=== PATIENT | male | born 1995 | race Caucasian/White ===

== ENCOUNTER 2018-06-21 16:19 | Emergency (ER) | payer SELFPAY ==
[2018-06-21] MEDS ORDERED: FLUORESCEIN SODIUM 0.6 MG/WRAP ONE (16:29)
[2018-06-21] MEDS ORDERED: TETRACAINE HCL 0.5% 2ML OPTH ONE (16:29)
--- NOTE | 2018-06-21 17:07 | ER ---
Nurse's Notes [facility] Name: Rui Gautam Age: 22 yrs Sex: Male : 1995 Arrival Date: 06/21/2018 Time: 16:20 Bed 6 Private MD: Diagnosis: Injury of conjunctiva and corneal abrasion without foreign body, right eye Presentation: 06/21 16:26 Presenting complaint: Patient states: He was cutting a [place] into some sheet metal and aj1 the corner flew up into his eye. FB noted to inner section of right eyeball. Patient denies any loss of vision. Transition of care: patient was not received from another setting of care. Mechanism of Injury: Penetrating trauma inflicted by metal Object remains in place. The patient denies any loss of vision. Onset of symptoms was June 21, 2018. Risk Assessment: Do you want to hurt yourself or someone else? Patient reports no desire to harm self or others. Initial Sepsis Screen: Does the patient meet any 2 criteria? No. Patient's initial sepsis screen is negative. Does the patient have a suspected source of infection? Yes: Skin breakdown/wound. Care prior to arrival: None. 16:26 Method Of Arrival: Ambulatory aj1 16:26 Acuity: LARRY 2 aj1 Triage Assessment: 16:29 General: Appears in no apparent distress. uncomfortable, Behavior is calm, cooperative, aj1 appropriate for age. Pain: Complains of pain in right eye Pain currently is 9 out of 10 on a pain scale. EENT: Eyes with foreign body noted in inner aspect of conjuctiva of right eye Sclera/Cornea are reddened in outer aspect of conjuctiva of right eye and inner aspect of conjuctiva of right eye Reports pain in right eye Denies loss of vision. Neuro: Level of Consciousness is awake, alert, obeys commands. Cardiovascular: Patient's skin is warm and dry. Respiratory: Airway is patent Respiratory effort is even, unlabored, Respiratory pattern is regular, symmetrical. Historical: - Allergies: 16:29 No Known Allergies; aj1 - Home Meds: 16:29 None [Active]; aj1 - PMHx: 16:29 None; aj1 - PSHx: 16:29 Knee surgery; Tonsillectomy; aj1 - Immunization history:: Last tetanus immunization: unknown. - Social history:: Smoking status: Patient uses tobacco products, smokes one-half pack cigarettes per day. - Ebola Screening: : Patient denies travel to an Ebola-affected area in the 21 days before illness onset. Screenin:30 Abuse screen: Denies threats or abuse. Denies injuries from another. Nutritional ph screening: No deficits noted. Tuberculosis screening: No symptoms or risk factors identified. Fall Risk None identified. Assessment: 16:28 General: Appears in no apparent distress. uncomfortable, Behavior is calm, cooperative. ph Pain: Complains of pain in right eye. Neuro: Level of Consciousness is awake, alert, obeys commands, Oriented to person, place, time, situation. Cardiovascular: Capillary refill < 3 seconds Patient's skin is warm and dry. Respiratory: Airway is patent Respiratory effort is even, unlabored. EENT: Eyes are tearing on right eye with foreign body noted in inner aspect of conjuctiva of right eye Sclera/Cornea are reddened in inner aspect of conjuctiva of right eye Reports blurred vision in right eye. Derm: Skin is intact, is healthy with good turgor, Skin is pink, warm \T\ dry. Musculoskeletal: Circulation, motion, and sensation intact. Range of motion: intact in all extremities. 17:23 Reassessment: Patient appears in no apparent distress at this time. Patient and/or ph family updated on plan of care and expected duration. Pain level reassessed. Patient is alert, oriented x 3, equal unlabored respirations, skin warm/dry/pink. Pt agrees to folow up w/ Dr Magallanes tomorrow, d/c home w/ prescriptions for antibiotics and pain medication. Vital Signs: 16:29 BP 136 / 79; Pulse 83; Resp 18; Temp 98.3; Pulse Ox 97% on R/A; Weight 130.18 kg; aj1 Height 6 ft. 0 in. (182.88 cm); Pain 9/10; 16:29 Body Mass Index 38.92 (130.18 kg, 182.88 cm) aj1 Visual Acuity: 13:15 Left Eye Visual acuity 20/30, ; Right Eye Visual acuity 20/30, ; Both Eyes Visual ph acuity 20/30; Without Lenses; ED Course: 16:20 Patient arrived in ED. sb2 16:26 Jd Rodriguez NP is PHCP. eb 16:26 Jose Hawthorne MD is Attending Physician. eb 16:26 Charlotte Bear, RN is Primary Nurse. aj1 16:28 Vernell Newman, RN is Primary Nurse. ph 16:28 Triage completed. aj1 16:29 Arm band placed on Patient placed in an exam room. aj1 16:30 Patient has correct armband on for positive identification. Bed in low position. Call ph light in reach. Side rails up X 1. Pulse ox on. NIBP on. Warm blanket given. 16:30 Assist provider with eye exam of right eye. using fluorescein stain, Performed by evelyn Rodriguez NP Patient tolerated well. 17:05 Zay Magallanes MD is Referral Physician. pm1 17:05 Heri Magallanes MD is Referral Physician. pm1 17:18 Patient did not have IV access during this emergency room visit. 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 Exp: ph 08/24/2020. Lot #: [id number]. } Route: IM; Site: left deltoid; 17:22 Follow up: Response: No adverse reaction ph 17:17 Drug: Vigamox 0.5 % 2 drops Route: Ophthalmic; Site: right eye; ph 17:22 Follow up: Response: No adverse reaction ph Outcome: 17:07 Discharge ordered by MD. pm1 17:18 Discharged to home ambulatory. ph 17:18 Condition: good 17:18 Discharge instructions given to patient, Instructed on discharge instructions, follow up and referral plans. medication usage, Demonstrated understanding of instructions, follow-up care, medications, Prescriptions given X 2. 17:25 Patient left the ED. ph Signatures: Charlotte Bear, RN RN aj1 Desirae Duncan RN RN Vernell Clay, Jd Alaniz RN, ph, NP SQL ENGINEER pm1 Shahnaz Garcia 2 Jazzmine Resendez eb
--- NOTE | 2018-06-21 17:07 | EDPHYS ---
Physician Documentation [facility] Name: Rui Gautam Age: 22 yrs Sex: Male : 1995 Arrival Date: 06/21/2018 Time: 16:20 Bed 6 Private MD: ED Physician Jose Hawthorne HPI: 06/21 17:00 This 22 yrs old Male presents to ER via Ambulatory with complaints of Right pm1 Eye Injury. 17:00 The patient is experiencing pain, The patient sustained an abrasion, to the right eye, pm1 caused by Piece of metal. Onset: The symptoms/episode began/occurred just prior to arrival. Duration: the symptoms are continuous. Aggravated by closing eye, Alleviated by keeping eye open. Associated signs and symptoms: Pertinent negatives: vision changes. Patient does not utilize any form of vision correction. The patient has not experienced similar symptoms in the past. The patient has not recently seen a physician. Patient was working with sheet metal. Cutting out a [place]. The [place]roquois metal piece flew out of the sheet and hit his eye. No protective eye wear. Patient with sensation of foreign body in right eye. 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 Historical: - Allergies: 16:29 No Known Allergies; aj1 - Home Meds: 16:29 None [Active]; aj1 - PMHx: 16:29 None; aj1 - PSHx: 16:29 Knee surgery; Tonsillectomy; aj1 - Immunization history:: Last tetanus immunization: unknown. - Social history:: Smoking status: Patient uses tobacco products, smokes one-half pack cigarettes per day. - Ebola Screening: : Patient denies travel to an Ebola-affected area in the 21 days before illness onset. ROS: 17:00 Constitutional: Negative for fever, chills, and weight loss. pm1 17:00 ENT: Negative for injury, pain, and discharge, Neck: Negative for injury, pain, and swelling, Cardiovascular: Negative for chest pain, palpitations, and edema, Respiratory: Negative for shortness of breath, cough, wheezing, and pleuritic chest pain, Abdomen/GI: Negative for abdominal pain, nausea, vomiting, diarrhea, and constipation, Back: Negative for injury and pain, : Negative for injury, bleeding, discharge, and swelling, MS/Extremity: Negative for injury and deformity, Skin: Negative for injury, rash, and discoloration, Neuro: Negative for headache, weakness, numbness, tingling, and seizure. 17:00 Eyes: Positive for foreign body sensation, pain, Negative for blurry vision. Exam: 17:00 Visual Acuity: Patient did not want to perform test. Reports that his vision is fine. pm1 17:00 Constitutional: This is a well developed, well nourished patient who is awake, alert, and in no acute distress. Head/Face: Normocephalic, atraumatic. 17:00 ENT: Nares patent. No nasal discharge, no septal abnormalities noted. Tympanic membranes are normal and external auditory canals are clear. Oropharynx with no redness, swelling, or masses, exudates, or evidence of obstruction, uvula midline. Mucous membranes moist. Neck: Trachea midline, no thyromegaly or masses palpated, and no cervical lymphadenopathy. Supple, full range of motion without nuchal rigidity, or vertebral point tenderness. No Meningismus. Chest/axilla: Normal chest wall appearance and motion. Nontender with no deformity. No lesions are appreciated. Cardiovascular: Regular rate and rhythm with a normal S1 and S2. No gallops, murmurs, or rubs. Normal PMI, no JVD. No pulse deficits. Respiratory: Lungs have equal breath sounds bilaterally, clear to auscultation and percussion. No rales, rhonchi or wheezes noted. No increased work of breathing, no retractions or nasal flaring. Abdomen/GI: Soft, non-tender, with normal bowel sounds. No distension or tympany. No guarding or rebound. No evidence of tenderness throughout. Back: No spinal tenderness. No costovertebral tenderness. Full range of motion. Skin: Warm, dry with normal turgor. Normal color with no rashes, no lesions, and no evidence of cellulitis. MS/ Extremity: Pulses equal, no cyanosis. Neurovascular intact. Full, normal range of motion. 17:00 Eyes: Periorbital structures: appear normal, Pupils: no acute changes, Extraocular movements: intact throughout, Corneas: abrasion, that is large, approximately 10 mm(s), on the right, Sclera: abrasion, at 3 o'clock, Anterior chamber: normal, no hyphema, Lids and lashes: appear normal, bilaterally. 17:00 Neuro: Orientation: is normal, Motor: is normal, moves all fours, Gait: is steady, at a normal pace, without difficulty. Vital Signs: 16:29 BP 136 / 79; Pulse 83; Resp 18; Temp 98.3; Pulse Ox 97% on R/A; Weight 130.18 kg; aj1 Height 6 ft. 0 in. (182.88 cm); Pain 9/10; 16:29 Body Mass Index 38.92 (130.18 kg, 182.88 cm) aj1 Visual Acuity: 13:15 Left Eye Visual acuity 20/30, ; Right Eye Visual acuity 20/30, ; Both Eyes Visual ph acuity 20/30; Without Lenses; MDM: 16:34 Patient medically screened. pm1 17:05 Data reviewed: vital signs. Data interpreted: Pulse oximetry: on room air is 97 %. pm1 Interpretation: normal. Counseling: I had a detailed discussion with the patient and/or guardian regarding: the historical points, exam findings, and any diagnostic results supporting the discharge/admit diagnosis, the need for outpatient follow up, for definitive care, an opthalmologist, to return to the emergency department if symptoms worsen or persist or if there are any questions or concerns that arise at home. 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 Exp: ph 08/24/2020. Lot #: [id number]. } Route: IM; Site: left deltoid; 17:22 Follow up: Response: No adverse reaction ph 17:17 Drug: Vigamox 0.5 % 2 drops Route: Ophthalmic; Site: right eye; ph 17:22 Follow up: Response: No adverse reaction ph Disposition: 06/21/18 17:07 Discharged to Home. Impression: Injury of conjunctiva and corneal abrasion without foreign body, right eye. - Condition is Stable. - Discharge Instructions: Corneal Abrasion. - Prescriptions for Tylenol- Codeine #3 300-30 mg Oral Tablet - take 2 tablets by ORAL route every 6 hours As needed; 20 tablet. Vigamox 0.5 % Ophthalmic Drops - instill 1 drop by OPHTHALMIC route every 8 hours for 7 days; 5 milliliter. - Medication Reconciliation Form, Thank You Letter, Antibiotic Education, Prescription Opioid Use form. - Follow up: Emergency Department; When: As needed; Reason: Worsening of condition. Follow up: Zay Magallanes MD; When: Tomorrow; Reason: Recheck today's complaints, Continuance of care, Re-evaluation by your physician. Follow up: Heri Magallanes MD; When: Tomorrow; Reason: Recheck today's complaints, Continuance of care, Re-evaluation by your physician. - Problem is new. - Symptoms have improved. Addendum: 06/25/2018 17:26 Co-signature as Attending Physician, Jose Hawthorne MD. m a2 Signatures: Charlotte Bear RN RN aj1 Desirae Duncan RN RN Vernell Newman RN RN ph Jd Rodriguez, NEHEMIAS ASSEMBLER BRAZER pm1 Jose Hawthorne MD MD ma2 Corrections: (The following items were deleted from the chart) 06/21 17:25 17:07 06/21/2018 17:07 Discharged to Home. Impression: Injury of conjunctiva and ph corneal abrasion without foreign body, right eye. Condition is Stable. Forms are Medication Reconciliation Form, Thank You Letter, Antibiotic Education, Prescription Opioid Use. Follow up: Emergency Department; When: As needed; Reason: Worsening of condition. Follow up: Zay Magallanes; When: Tomorrow; Reason: Recheck today's complaints, Continuance of care, Re-evaluation by your physician. Follow up: Heri Magallanes; When: Tomorrow; Reason: Recheck today's complaints, Continuance of care, Re-evaluation by your physician. Problem is new. Symptoms have improved. pm1
[2018-06-21] MEDS ORDERED: TETANUS & DIPHTHERIA TOX,ADULT 0.5 ML VIAL ONE (17:09)
[2018-06-21] MEDS ORDERED: MOXIFLOXACIN HCL 0.5% 3ML OPTH OPTH ONE (17:15)
[2018-06-21 18:36] VITALS: BP 136/79; TEMP 98.3; O2SAT 97
== END 2018-06-21 17:25 | disposition home or self-care (01) ==
LOC: ER 16:19
DX: S05.01XA Injury of conjunctiva and corneal abrasion without foreign body, right eye, initial encounter (principal); X58.XXXA Exposure to other specified factors, initial encounter; Z23 Encounter for immunization
CPT/HCPCS: 90714; 99284

== ENCOUNTER 2019-08-22 03:04 | Emergency (ER) | payer BC, SELFPAY ==
[2019-08-22 03:55] LABS: Absolute Lymphocytes (CBC) 3.8 K/uL (0.7-4.9); Basophils % 0.7 % (0-1.3); Hematocrit 46.2 % (39.6-49.0); Lymphocytes % 34.3 % (15.3-44.8); MPV 8.1 fL (7.6-11.3); RBC Red Blood Cell Count 5.37 M/uL (4.33-5.43)
[2019-08-22 03:56] LABS: Protime INR 0.98
[2019-08-22 04:05] LABS: ALT/SGPT 48 U/L (12-78); AST/SGOT 24 U/L (15-37); Albumin 4.1 g/dL (3.4-5.0); Alkaline Phosphatase 117 U/L (45-117); BUN Blood Urea Nitrogen 10 mg/dL (7-18); Bicarbonate 26 mmol/L (21-32); Bilirubin Direct < 0.1 mg/dL (0-0.2); Bilirubin Total 0.3 mg/dL (0.2-1.0); Glucose Level 141 mg/dL (74-106); Potassium 3.8 mmol/L (3.5-5.1); Protein, Total 8.2 g/dL (6.4-8.2); Sodium Level 139 mmol/L (136-145); Troponin (Emerg Dept Use Only) < 0.02 ng/mL (0.0-0.045)
[2019-08-22 04:08] LABS: NT PRO-BNP < 5 pg/mL (<125)
--- NOTE | 2019-08-22 04:59 | ER ---
Nurse's Notes [facility] Name: Rui Gautam Age: 23 yrs Sex: Male : 1995 Arrival Date: 08/22/2019 Time: 03:04 Bed 5 Private MD: Diagnosis: Chest pain, unspecified;Hypertension to be determined Presentation: 08/22 03:27 Presenting complaint: Patient states: Chest pain, dizziness, shortness of breath that lp1 began about [id number] tonight; Patient states working nights, about 3 hours of sleep and drank a [employer] energy drink prior to symptoms; States "I feel like I can hear my heart beat in my ears". Transition of care: patient was not received from another setting of care. Onset of symptoms was August 22, 2019. Risk Assessment: Do you want to hurt yourself or someone else? Patient reports no desire to harm self or others. Initial Sepsis Screen: Does the patient meet any 2 criteria? No. Patient's initial sepsis screen is negative. Does the patient have a suspected source of infection? No. Patient's initial sepsis screen is negative. Care prior to arrival: None. 03:27 Method Of Arrival: Ambulatory lp1 03:27 Acuity: LARRY 2 lp1 Historical: - Allergies: 03:29 No Known Allergies; lp1 - Home Meds: 03:29 None [Active]; lp1 - PMHx: 03:29 None; lp1 - PSHx: 03:29 Tonsillectomy; Knee surgery; lp1 - Immunization history:: Adult Immunizations up to date. - Social history:: Smoking status: Patient uses tobacco products, smokes one pack cigarettes per day. Patient uses alcohol, occasionally. Patient/guardian denies using street drugs. - Ebola Screening: : No symptoms or risks identified at this time. Screenin:29 Abuse screen: Denies threats or abuse. Denies injuries from another. Nutritional lp1 screening: No deficits noted. Tuberculosis screening: No symptoms or risk factors identified. Fall Risk None identified. Assessment: 03:31 General: Appears in no apparent distress. uncomfortable, Behavior is calm, cooperative, jb4 appropriate for age. Pain: Complains of pain in left clavicle and left breast Pain does not radiate. Pain currently is 7 out of 10 on a pain scale. Quality of pain is described as pressure, stabbing, Pain began 3 hours ago. Is continuous. Neuro: Level of Consciousness is awake, alert, obeys commands, Oriented to person, place, time, situation. Cardiovascular: Patient's skin is warm and dry. Rhythm is sinus rhythm. Respiratory: Airway is patent Respiratory effort is even, unlabored, Respiratory pattern is regular, symmetrical. GI: Reports vomiting, 3 times prior to arrival. : No signs and/or symptoms were reported regarding the genitourinary system. EENT: No signs and/or symptoms were reported regarding the EENT system. Derm: Skin is intact, Skin is pink, warm \\T\\ dry. Musculoskeletal: Circulation, motion, and sensation intact. Range of motion: intact in all extremities. 04:20 Reassessment: Patient appears in no apparent distress at this time. Patient and/or jb4 family updated on plan of care and expected duration. Pain level reassessed. Patient is alert, oriented x 3, equal unlabored respirations, skin warm/dry/pink. 05:07 Reassessment: Patient appears in no apparent distress at this time. Patient and/or jb4 family updated on plan of care and expected duration. Pain level reassessed. Patient is alert, oriented x 3, equal unlabored respirations, skin warm/dry/pink. Vital Signs: 03:28 BP 169 / 101; Pulse 84; Resp 20; Temp 98.6(O); Pulse Ox 100% on R/A; Weight 136.08 kg lp1 (R); Height 6 ft. 0 in. (182.88 cm); Pain 7/10; 04:18 BP 138 / 84; Pulse 66; Resp 22; Pulse Ox 98% on R/A; jb4 05:07 BP 143 / 95; Pulse 74; Resp 18; Pulse Ox 99% on R/A; jb4 03:28 Body Mass Index 40.69 (136.08 kg, 182.88 cm) lp1 ED Course: 03:04 Patient arrived in ED. ds1 03:07 Israel Deleon MD is Attending Physician. tw4 03:20 Inserted saline lock: 20 gauge in right antecubital area, using aseptic technique. lp1 Blood collected. 03:20 Patient maintains SpO2 saturation greater than 95% on room air. lp1 03:28 Triage completed. lp1 03:28 Arm band placed on. lp1 03:30 Huy Denney, RN is Primary Nurse. jb4 03:30 Patient has correct armband on for positive identification. Placed in gown. Bed in low lp1 position. Call light in reach. campus monitor on. Pulse ox on. NIBP on. 03:36 XRAY Chest (1 view) In Process Unspecified. EDMS 05:07 No provider procedures requiring assistance completed. IV discontinued, intact, jb4 bleeding controlled, No redness/swelling at site. Pressure dressing applied. Administered Medications: No medications were administered Outcome: 04:58 Discharge ordered by . twLarry 05:07 Discharged to home ambulatory. jb4 05:07 Condition: stable 05:07 Discharge instructions given to patient, Instructed on discharge instructions, follow up and referral plans. medication usage, Demonstrated understanding of instructions, follow-up care, medications, Prescriptions given X 1. 05:10 Patient left the ED. jb4 Signatures: Dispatcher [employer] EDMI Melissa Núñez ds1 Herminia El RN RN lp1 Huy Denney, RN RN jb4 Israel Deleon MD MD tw4
--- NOTE | 2019-08-22 04:59 | EDPHYS ---
Physician Documentation [facility] Name: Rui Gautam Age: 23 yrs Sex: Male : 1995 Arrival Date: 08/22/2019 Time: 03:04 Bed 5 Private MD: ED Physician Israel Deleon HPI: 08/22 04:50 This 23 yrs old Male presents to ER via Ambulatory with complaints of Chest tw4 Pain. 04:50 The patient or guardian reports chest pain that is located primarily in the anterior tw4 chest wall, left. The pain does not radiate. Associated signs and symptoms: The patient has no apparent associated signs or symptoms. The chest pain is described as dull. Duration: The patient or guardian reports a single episode. Severity of pain: At its worst the pain was moderate in the emergency department the pain is unchanged. The patient has not experienced similar symptoms in the past. Historical: - Allergies: 03:29 No Known Allergies; lp1 - Home Meds: 03:29 None [Active]; lp1 - PMHx: 03:29 None; lp1 - PSHx: 03:29 Tonsillectomy; Knee surgery; lp1 - Immunization history:: Adult Immunizations up to date. - Social history:: Smoking status: Patient uses tobacco products, smokes one pack cigarettes per day. Patient uses alcohol, occasionally. Patient/guardian denies using street drugs. - Ebola Screening: : No symptoms or risks identified at this time. ROS: 04:50 Constitutional: Negative for fever, chills, and weight loss, Eyes: Negative for injury, tw4 pain, redness, and discharge, Neck: Negative for injury, pain, and swelling. 04:50 Respiratory: Negative for shortness of breath, cough, wheezing, and pleuritic chest pain, Abdomen/GI: Negative for abdominal pain, nausea, vomiting, diarrhea, and constipation, Back: Negative for injury and pain, MS/Extremity: Negative for injury and deformity, Skin: Negative for injury, rash, and discoloration, Neuro: Negative for headache, weakness, numbness, tingling, and seizure. 04:50 Cardiovascular: Positive for chest pain, Negative for edema, orthopnea, palpitations, paroxysmal nocturnal dyspnea. Exam: 04:50 Constitutional: This is a well developed, well nourished patient who is awake, alert, tw4 and in no acute distress. Head/Face: Normocephalic, atraumatic. Chest/axilla: Normal chest wall appearance and motion. Nontender with no deformity. No lesions are appreciated. Cardiovascular: Regular rate and rhythm with a normal S1 and S2. No gallops, murmurs, or rubs. Normal PMI, no JVD. No pulse deficits. Respiratory: Lungs have equal breath sounds bilaterally, clear to auscultation and percussion. No rales, rhonchi or wheezes noted. No increased work of breathing, no retractions or nasal flaring. Abdomen/GI: Soft, non-tender, with normal bowel sounds. No distension or tympany. No guarding or rebound. No evidence of tenderness throughout. Back: No spinal tenderness. No costovertebral tenderness. Full range of motion. MS/ Extremity: Pulses equal, no cyanosis. Neurovascular intact. Full, normal range of motion. Neuro: Awake and alert, GCS 15, oriented to person, place, time, and situation. Cranial nerves II-XII grossly intact. Motor strength 5/5 in all extremities. Sensory grossly intact. Cerebellar exam normal. Normal gait. Vital Signs: 03:28 BP 169 / 101; Pulse 84; Resp 20; Temp 98.6(O); Pulse Ox 100% on R/A; Weight 136.08 kg lp1 (R); Height 6 ft. 0 in. (182.88 cm); Pain 7/10; 04:18 BP 138 / 84; Pulse 66; Resp 22; Pulse Ox 98% on R/A; jb4 05:07 BP 143 / 95; Pulse 74; Resp 18; Pulse Ox 99% on R/A; jb4 03:28 Body Mass Index 40.69 (136.08 kg, 182.88 cm) lp1 MDM: 03:08 Patient medically screened. tw4 04:50 Differential diagnosis: acute myocardial infarction, acute pericarditis, anxiety, chest tw4 wall pain, stable angina, unstable angina. HEART Score: History: Slightly Suspicious (0), ECG: Normal (0), Age: < or = 45 years (0), Risk Factors: No Risk Factors Known (0), Troponin: < or = 1 x Normal Limit (0), Total Score = 0. Data reviewed: vital signs, nurses notes. Data interpreted: Pulse oximetry: Interpretation: normal. Test interpretation: by ED physician or midlevel provider: ECG. Counseling: I had a detailed discussion with the patient and/or guardian regarding: the historical points, exam findings, and any diagnostic results supporting the discharge/admit diagnosis, the presence of at least one elevated blood pressure reading (>120/80) during this emergency department visit. Special discussion: Based on the patient's history, exam, and Dx evaluation, there is no indication for emergent intervention or inpatient Tx. It is understood by the patient/guardian that if the Sx's persist or worsen they need to return immediately for re-evaluation. I discussed with the patient/guardian in detail that at this point there is no indication for admission to the hospital. It is understood, however, that if the symptoms persist or worsen the patient needs to return immediately for re-evaluation. 08/22 03:23 Order name: Basic Metabolic Panel; Complete Time: 04:48 08/22 04:48 Interpretation: Normal except: GLUC 141. 08/22 03:23 Order name: CBC with Diff; Complete Time: 04:48 08/22 04:48 Interpretation: Normal except: WBC 11.2. 08/22 03:23 Order name: LFT's; Complete Time: 04:48 08/22 04:48 Interpretation: Normal except: GLOB 4.1; A/G 1.0. 08/22 03:23 Order name: Magnesium; Complete Time: 04:48 08/22 04:49 Interpretation: Within normal limits: MG 2.0. 08/22 03:23 Order name: NT PRO-BNP; Complete Time: 04:48 08/22 04:49 Interpretation: Within normal limits: NT PRO-BNP < 5. 08/22 03:23 Order name: PT-INR; Complete Time: 04:48 08/22 04:49 Interpretation: Within normal limits: PT 11.6. 08/22 03:23 Order name: Troponin (emerg Dept Use Only); Complete Time: 04:48 08/22 04:49 Interpretation: Within normal limits: TROPED < 0.02. 08/22 03:23 Order name: XRAY Chest (1 view) 08/22 03:23 Order name: EKG; Complete Time: 03:24 4 08/22 03:23 Order name: Cardiac monitoring; Complete Time: 03:30 08/22 03:23 Order name: EKG - Nurse/Tech; Complete Time: 03:30 08/22 03:23 Order name: IV Saline Lock; Complete Time: 03:30 08/22 03:23 Order name: Labs collected and sent; Complete Time: 03:30 08/22 03:23 Order name: O2 Per Protocol; Complete Time: 03:30 08/22 03:23 Order name: O2 Sat Monitoring; Complete Time: 03:45 tw4 EC:50 Rate is 84 beats/min. Rhythm is regular. QRS [place] is Normal. VA interval is normal. QRS tw4 interval is normal. QT interval is normal. No Q waves. T waves are Normal. No ST changes noted. Clinical impression: Normal ECG. Interpreted by me. Reviewed by me. Administered Medications: No medications were administered Disposition: 08/22/19 04:58 Discharged to Home. Impression: Chest pain, unspecified, Hypertension to be determined. - Condition is Stable. - Discharge Instructions: Nonspecific Chest Pain, Hypertension, Pain Without a Known Cause. - Prescriptions for Ibuprofen 600 mg Oral Tablet - take 1 tablet by ORAL route every 6 hours As needed take with food; 30 tablet. - Work release form, Medication Reconciliation Form, Thank You Letter, Antibiotic Education, Prescription Opioid Use form. - Follow up: Private Physician; When: Upon discharge from the Emergency Department; Reason: Recheck today's complaints, Continuance of care. - Problem is new. - Symptoms have improved. Signatures: Dispatcher [employer] EDMS Herminia El, RN RN lp1 Huy Denney RN RN jb4 Israel Deleon MD MD tw4 Corrections: (The following items were deleted from the chart) 05:10 04:58 08/22/2019 04:58 Discharged to Home. Impression: Chest pain, unspecified; jb4 Hypertension to be determined. Condition is Stable. Forms are Medication Reconciliation Form, Thank You Letter, Antibiotic Education, Prescription Opioid Use. Follow up: Private Physician; When: Upon discharge from the Emergency Department; Reason: Recheck today's complaints, Continuance of care. Problem is new. Symptoms have improved. tw4
[2019-08-22 05:21] VITALS: TEMP 98.6
[2019-08-22 05:23] VITALS: BP 143/95; O2SAT 99
--- NOTE | 2019-08-22 08:17 | RAD REPORT ---
EXAM DESCRIPTION: Renetta Single View08/22/2019 3:36 am CLINICAL HISTORY: Chest pain COMPARISON: 2013 FINDINGS: The lungs appear clear of acute infiltrate. The heart is normal size IMPRESSION: No acute abnormalities displayed
--- NOTE | 2019-08-23 06:38 | EKG ---
Test Date: 2019-08-22 Test Time: 03:21:17 Solids Control Technician: LISA MEASUREMENT RESULTS: Intervals: Rate: 84 NE: 160 QRSD: 94 QT: 354 QTc: 418 Johnson: P: 45 NE: 160 QRS: 14 T: 2 INTERPRETIVE STATEMENTS: Normal sinus rhythm Normal ECG Compared to ECG 12/09/2013 16:38:22 Sinus tachycardia no longer present Electronically Signed On 08-23-19 06:36:12 DIRECTOR CLINICAL DATA by Chris Guadalupe
== END 2019-08-22 05:10 | disposition home or self-care (01) ==
LOC: ER 03:04
DX: R07.9 Chest pain, unspecified (principal); F17.210 Nicotine dependence, cigarettes, uncomplicated
CPT/HCPCS: 36415; 71045; 80048; 80076; 83735; 83880; 84484; 85025; 85610; 93005; 99285

== ENCOUNTER 2023-03-12 15:35 | Emergency (ER) | payer BC, OTHER ==
--- OUTSIDE RECORDS SUMMARY | 2023-03-12 15:57 | XMS REPORT | Continuity of Care Document ---
:[address] [facility] t Address [address] [place] [address] Care Team Providers Name Role Phone Dixie Jorge MD Primary Care Physician [phone] TED WOMACK Attending Clinician Unavailable Ted Womack DO Attending Clinician CHRISTOPHER ROBLEDO Attending Clinician Unavailable Osmar Mathews MD Attending Clinician Eduardo Ordoñez MD Attending Clinician Christopher Robledo MD Attending Clinician Marquita Smith MD Attending Clinician REBECCA JAIMES Attending Clinician Unavailable Rebecca Herndon Attending Clinician MAXIMO PIZARRO Attending Clinician Unavailable Maximo Hernandez Attending Clinician DIXIE JORGE Attending Clinician Unavailable Dixie Jorge MD Attending Clinician Ariel Santillan S Attending Clinician ARIEL PATEL Attending Clinician Unavailable SHERRY GARCIA Attending Clinician Unavailable EDUARDO ORDOÑEZ Admitting Clinician Unavailable Eduardo Ordoñez MD Admitting Clinician REBECCA JAIMES Admitting Clinician Unavailable Payers Payer Name Policy Type Policy Number Effective Date Expiration Date S lluú [employer] [place] - [id number] 2019 00:00:00 OUT OF STATE Problems Condition Condition Condition Status Onset Resolution Last Treating Co mments Source Name Details Category Date Date Treatment Clinician Date 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 Univers abscess abscess 2-19 ity of 00:00: [place] 00 Medical Branch Morbid Morbid Disease Active 2021-08 Univers obesity obesity 2-19 [place] of with [place] mass index mass index 00 Me dical of of Branch 40.0-49.9 40.0-49.9 Tear of Tear of Disease Active Univers lateral lateral 1-15 [place] of cartilage cartilage [place] 00 Medical meniscus meniscus Branch of knee, of knee, current current Tear of Tear of Disease Active Univers lateral lateral 1-15 [place] of cartilage cartilage 00:[place] 00 Medical meniscus meniscus Branch of knee, of knee, current current Allergies, Adverse Reactions, Alerts Allergy Allergy Status Severity Reaction(s) Onset Inactive Treating Comm ents Source Name Type Date Date Clinician NO KNOWN Drug Active Univers ALLERGIE Class ity of [facility] [place] [facility] Social History Social Habit Start Date Stop Date Quantity Comments Source History SDOH Social Unive rsity of [facility] Med ical Together Branch History SDOH Social Unive rsity of [facility] Branch History SDOH Social Unive rsity of [facility] Medical Membership Branch History SDOH Social Unive rsity of [facility] Medical Meetings Branch History of tobacco Cigarette Smoker University of use [facility] [place] [facility] Alcohol intake 2022-07-26 2022-07-26 1.71 /d University of 00:00:00 00:00:00 [place] [facility] History SDOH 2022-07-25 2022-07-25 1 University o f Alcohol Frequency 00:00:00 00:00:00 [place] [facility] History SDOH 2022-07-25 2022-07-25 0 University o f Alcohol Std Drinks 00:00:00 00:00:00 [place] [facility] History SDOH 2022-07-25 2022-07-25 1 University o f Alcohol Binge 00:00:00 00:00:00 [place] Medic al [facility] History SDOH Social 2022-07-25 2022-07-25 5 Unive rsity of Connections Phone 00:00:00 00:00:00 [facility] edical Branch History SDNY Social 2022-07-25 2022-07-25 3 Unive rsity of [facility] Living 00:00:00 00:00:00 [place] [facility] History SDOH 2022-07-25 2022-07-25 5 University o f Physical Activity 00:00:00 00:00:00 [facility] edical DPW Branch History SDNY 2022-07-25 2022-07-25 4 University o f Physical Activity 00:00:00 00:00:00 [facility] edical MPS Branch History SDNY 2022-07-25 2022-07-25 5 University o f Financial 00:00:00 00:00:00 [place] [facility] History SDOH Food 2022-07-25 2022-07-25 1 Univers ity of Worry 00:00:00 00:00:00 [place] [facility] History SDNY Food 2022-07-25 2022-07-25 1 Univers ity of Scarcity 00:00:00 00:00:00 [place] [facility] History SDNY 2022-07-25 2022-07-25 2 University o f Transport Med 00:00:00 00:00:00 [place] [facility] History SDNY 2022-07-25 2022-07-25 2 University o f Transport Non-Med 00:00:00 00:00:00 [facility] edical Branch Cigarettes smoked 2022-07-25 2022-07-25 Univers ity of current (pack per 00:00[facility]00 [facility] Tobacco use and 2022-07-25 2022-07-25 Smokeless tobacco Un iversity of exposure 00:00:00 00:00:00 non-user [facility] [place] [facility] Exposure to 2022-07-14 2022-07-24 Not sure University of SARS-CoV-2 (event) 00:00:00 19:09:00 [facility] [place] [facility] Tobacco Comment 2022-07-24 2022-07-24 10 cigarettes a Univ ersity of 00:00:00 00:00:00 day. [facility] [place] [facility] Sex [birth year] At [birth year] Universit y of 00:00:00 00:00:00 [facility] [place] [facility] Smoking Status Start Date Stop Date Source Smokes tobacco daily 2022-07-25 00:00:00 Univers ity of [facility] [place] [facility] Medications Ordered Filled Start Stop Current Ordering Indication Dosage Frequency Signature Comments Components Source Medication Medication Date Date Medication? Clinician (SIG) Name Name clindamycin 2022- No [id number] 300mg Take 2 Univers 150 mg 08-30 capsules ity of capsule 00:00: 05:59 by mouth 4 [place] 00 :00 (four) Medical times [place] daily for 14 days. amoxicillin 2021-08- No 1{tbl} 1 tablet, Univers -clavulanat 09-26 Oral, ity of e 20:15: 13:59 Q12H, 20 [place] (AUGMENTIN) 00 :00 doses, Medica l 875-125 mg First dose Bra nch per tablet on Sun 1 tablet 07/26/22 at 1415, Last dose on Sun08/04/22 at 2000, Routine
Reason for Anti-Infec tive: Documented Infection< br>Documen pete Infection Site: Wound
D uration of Therapy: 10 days traMADoL 2021-08 No 50mg 50 mg, Univer s (ULTRAM) 09-26 Oral, ity of tablet 50 13:00: 04:59 Q6HPRN, [place] mg 00 :00 Starting Medical on Sun Branch 07/26/22 at 0700, Until Sun07/26/22 at 2259, Routine, Pain (scale 4-6) traMADoL 2021-08 No 50mg 50 mg, Univer s (ULTRAM) 09-26 Oral, ity of tablet 50 13:00: 04:59 Q6HPRN, [place] mg 00 :00 Starting Medical on Sun07/26/22 at 0700, Until Sun07/26/22 at 2259, Routine, Pain (scale 4-6) nicotine 2021-08 Yes 1{patch 1 Patch, Un gabbi (NICODERM) 2-21 } Topical, ity o f 14 mg/24 hr 04:30: Administer [place] patch 1 00 over 24 Medical Patch Hours, Branch Q24H, First dose on Sun07/25/22 at 2230, Until Discontinu ed, Routine nicotine 2021-08 Yes 1{patch 1 Patch, Un gabbi (NICODERM) 2-21 } Topical, ity o f 14 mg/24 hr 04:30: Administer [place] patch 1 00 over 24 Medical Patch Hours, Branch Q24H, First dose on Sun07/25/22 at 2230, Until Discontinu ed, Routine morpHINE (4 2021-08- No 4mg 4 mg, Slow Univers mg/mL) 09-26 IV Push, ity of injection 4 02:13: 02:12 Q4HPRN, [place] mg 22 :22 Starting Medical on Sun [place] 07/25/22 at 2012, Until Sun07/26/22 at 2011, Routine, Pain (scale 7-10) morpHINE (4 2021-08- No 4mg 4 mg, Slow Univers mg/mL) 09-26 IV Push, ity of injection 4 02:13: 02:12 Q4HPRN, [place] mg 22 :22 Starting Medical on [place] 07/25/22 at 2012, Until Sun07/26/22 at 2011, Routine, Pain (scale 7-10) sulfamethox 2021-08- No [id number] 1{tbl} Take 1 Univers azole-trime 09-26 tablet by it y of thoprim 00:00: 05:59 mouth in [place] (BACTRIM 00 :00 the Medical DS) 800-160 morning Branc h mg per and 1 tablet tablet in the evening. Do all this for 10 days. traMADoL 50 2021-08- No [id number] 50mg Take 1 Uni vers mg tablet 09-26 tablet by ity of 00:00: 05:59 mouth [place] 00 :00 every 8 Medical (eight) Branch hours as needed for Pain (scale 4-6) for up to 7 days. Indication s: acute pain sodium 2021-08 No PRN, Univers chloride 09-25 Starting ity of 0.9 % 17:43: 18:07 on Sun [place] irrigation 00 :02 07/25/22 Medic al solution at 1143, Branch Until Sun07/25/22 at 1207, Intra-op enoxaparin 2021-08 Yes 40mg 40 mg, Unive rs (LOVENOX) 2-20 Subcutaneo ity of injection 15:00: [place], DAILY, [place] 40 mg 00 First dose Medical on [facility] 07/25/22 at 0900, Until Discontinu ed, Routine enoxaparin 2021-08 Yes 40mg 40 mg, Unive rs (LOVENOX) 2-20 Subcutaneo ity of injection 15:00: us, DAILY, [place] 40 mg 00 First dose Medical on [facility] 07/25/22 at 0900, Until Discontinu ed, Routine piperacilli 2021-08 No 3.375g 3.375 g, Univers n-tazobacta 09-25 IV ity of m (ZOSYN) 11:00: 18:00 Piggyback, [place] 3.375 g in 00 :53 Q8H ABX, 7 Med ical NaCl 0.9% doses, Branch (NS) 50 mL First dose MINI-BAG (after last reorder) on Sun07/25/22 at 0500, Last dose on Sun07/27/22 at 0500, Administer over 240 Minutes, 50 mL
Reas on for Anti-Infec tive: Documented Infection< br>Documen pete Infection Site: Skin / Soft Tissue
Duration of Therapy: Other (see Comments) piperacilli 2021-08- No 3.375g 3.375 g, Univers n-tazobacta 09-25 IV ity of m (ZOSYN) 11:00: 18:00 Pig[place]back, [place] 3.375 g in 00 :53 Q8H ABX, 7 Med ical NaCl 0.9% doses, Branch (NS) 50 mL First dose MINI-BAG (after last reorder) on Sun07/25/22 at 0500, Last dose on Sun07/27/22 at 0500, Administer over 240 Minutes, 50 mL
Reas on for Anti-Infec tive: Documented Infection< br>Documen pete Infection Site: Skin / Soft Tissue
Duration of Therapy: Other (see Comments) ondansetron 2021-08 Yes 4mg 4 mg, Slow Univers (ZOFRAN 2-20 IV Push, ity of (PF)) 05:40: Q6HPRN, [place] injection 4 41 Starting Medi shukri mg on Sun Branch 07/24/22 at 2340, Until Discontinu ed, Routine, Nausea and Vomiting (N/V) ondansetron 2021-08 Yes 4mg 4 mg, Slow Univers (ZOFRAN 2-20 IV Push, ity of (PF)) 05:40: Q6HPRN, [place] injection 4 41 Starting Medi shukri mg on Sun Branch 07/24/22 at 2340, Until Discontinu ed, Routine, Nausea and Vomiting (N/V) morpHINE (4 2021-08- No 4mg 4 mg, Slow Univers mg/mL) 09-25 IV Push, ity of injection 4 05:40: 02:13 Q4HPRN, [place] mg 27 :14 Starting Medical on Sun Branch 07/24/22 at 2340, Until Sun07/25/22 at 2013, Routine, Pain (scale 7-10) morpHINE (4 2021-08- No 4mg 4 mg, Slow Univers mg/mL) 09-25 IV Push, ity of injection 4 05:40: 02:13 Q4HPRN, [place] mg 27 :14 Starting Medical on Sun Branch 07/24/22 at 2340, Until Sun07/25/22 at 2013, Routine, Pain (scale 7-10) traMADoL 2021-08- No 50mg 50 mg, Univer s (ULTRAM) 09-25 Oral, ity of tablet 50 05:40: 12:54 Q8HPRN, [place] mg 24 :36 Starting Medical on Sun Branch 07/24/22 at 2340, Until Sun07/26/22 at 0654, Routine, Pain (scale 4-6) traMADoL 2021-08- No 50mg 50 mg, Univer s (ULTRAM) 09-25 Oral, ity of tablet 50 05:40: 12:54 Q8HPRN, [place] mg 24 :36 Starting Medical on [place] Branch 07/24/22 at 2340, Until Sun07/26/22 at 0654, Routine, Pain (scale 4-6) acetaminoph 2021-08 Yes 650mg 650 mg, Un gabbi en 2-20 Oral, ity of (TYLENOL) 05:40: Q6HPRN, [place] tablet 650 19 Starting Medic al mg on Sun Branch 07/24/22 at 2340, Until Discontinu ed, Routine, Pain (scale 1-3) acetaminoph 2021-08 Yes 650mg 650 mg, Un gabbi en 2-20 Oral, ity of (TYLENOL) 05:40: Q6HPRN, [place] tablet 650 19 Starting Medic al mg on Sun Branch 07/24/22 at 2340, Until Discontinu ed, Routine, Pain (scale 1-3) ketorolac 2021-08- No 30mg 30 mg, Unive rs (TORADOL) 09-25 Slow IV ity of injection 04:30: 03:41 Push, [place] 30 mg 00 :00 ONCE, 1 Medical dose, On Branch Sun07/24/22 at 2230, THADDEUS ketorolac 2021-08- No 30mg 30 mg, Unive rs (TORADOL) 09-25 Slow IV ity of injection 04:30: 03:41 Push, [place] 30 mg 00 :00 ONCE, 1 Medical dose, On Branch Sun07/24/22 at 2230, THADDEUS piperacilli 2021-08- No 3.375g 3.375 g, Univers n-tazobacta 09-25 IV ity of m (ZOSYN) 03:45: 04:40 Piggyback, [place] 3.375 g in 00 :00 ONCE, 1 Medica l NaCl 0.9% dose, On Branch (NS) 100 mL Mon MINI-BAG 07/24/22 at 2145, Administer over 30 Minutes, 100 mL
Reas on for Anti-Infec tive: Documented Infection< br>Documen pete Infection Site: Skin / Soft Tissue
Duration of Therapy: Other (see Comments) morpHINE (4 2021-08- No 4mg 4 mg, Slow Univers mg/mL) - 1220 IV Push, ity of injection 4 03:45: 03:37 ONCE, 1 [place] mg 00 :00 dose, On Medical Mon Branch 07/24/22 at 2145, STAT lidocaine-p 2021-08 No 2.5g Topical, U nivers rilocaine 09-25 ONCE, 1 ity of (EMLA) 03:45: 03:39 dose, On [place] 2.5-2.5 % 00 :00 Mon Medical cream 2.5 g 07/24/22 Bran ch at 2145, THADDEUS iopamidol 2021-08 No [id number] 76mL 76 mL, U nivers (ISOVUE 09-25 Intravenou ity o f 370-500 mL) 03:45: 03:45 s, ONCE, 1 [place] injection 00 :00 dose, On Medica l 76 mL Mon Branch 07/24/22 at 2145, Routine piperacilli 2021-08 No 3.375g 3.375 g, Univers n-tazobacta 09-25 IV ity of m (ZOSYN) 03:45: 04:40 Piggyback, [place] 3.375 g in 00 :00 ONCE, 1 Medica l NaCl 0.9% dose, On Branch (NS) 100 mL Mon MINI-BAG 07/24/22 at 2145, Administer over 30 Minutes, 100 mL
Reas on for Anti-Infec tive: Documented Infection< br>Documen pete Infection Site: Skin / Soft Tissue
Duration of Therapy: Other (see Comments) morpHINE (4 2021-08 No 4mg 4 mg, Slow Univers mg/mL) - 1220 IV Push, ity of injection 4 03:45: 03:37 ONCE, 1 [place] mg 00 :00 dose, On Medical Mon Branch 07/24/22 at 2145, STAT lidocaine-p 2022-1 2022- No 2.5g Topical, U nivers rilocaine 2-20 12-20 ONCE, 1 ity of (EMLA) 03:45: 03:39 dose, On [place] 2.5-2.5 % 00 :00 Mon Medical cream 2.5 g 07/24/22 Bran ch at 2145, THADDEUS iopamidol 2021-08- No [id number] 76mL 76 mL, U nivers (ISOVUE 2-20 12-20 Intravenou ity o f 370-500 mL) 03:45: 03:45 s, ONCE, 1 [place] injection 00 :00 dose, On Medica l 76 mL [facility] 07/24/22 at 2145, Routine ondansetron 2021-08 No 4mg 4 mg, Slow Univers (ZOFRAN 2-20 12-20 IV Push, ity of (PF)) 02:45: 02:15 ONCE, 1 [place] injection 4 00 :00 dose, On Medi shukri mg [facility] 07/24/22 at 2044, THADDEUS FENTanyl PF 2021-08 No 75ug 75 mcg, Un gabbi (SUBLIMAZE 2-20 12-20 Slow IV ity o f (PF)) 02:45: 02:16 Push, [place] injection 00 :00 ONCE, 1 Medical 75 mcg dose, On Branch [facility] 07/24/22 at 204, STAT ondansetron 2021-08- No 4mg 4 mg, Slow Univers (ZOFRAN 2-20 12-20 IV Push, ity of (PF)) 02:45: 02:15 ONCE, 1 [place] injection 4 00 :00 dose, On Medi shukri mg [facility] 07/24/22 at 204, THADDEUS FENTanyl PF 2021-08 No 75ug 75 mcg, Un gabbi (SUBLIMAZE 2-20 12-20 Slow IV ity o f (PF)) 02:45: 02:16 Push, [place] injection 00 :00 ONCE, 1 Medical 75 mcg dose, On Branch [facility] 07/24/22 at 204, STAT ceFAZolin 2021- No 1g 1 g, IV Univ ers (ANCEF) 1 g 6 06-11 Piggyback, i ty of in NaCl 07:45: 07:36 ONCE, 1 [place] 0.9% (NS) 00 :00 dose, On Medica l 50 mL Sat Branch MINI-BAG 01/14/22 at 0245, Administer over 30 Minutes, 50 mL
Reas on for Anti-Infec tive: Documented Infection< br>Documen pete Infection Site: Skin / Soft Tissue
Duration of Therapy: 7 days metroNIDAZO 2021- No 500mg 500 mg, U nivers LE (FLAGYL) 01-14 Oral, ity of tablet 500 07:30: 06:43 ONCE, 1 [place] mg 00 :00 dose, On Medical Sat Branch 01/14/22 at 0230, THADDEUS
Re ason for Anti-Infec tive: Documented Infection< br>Documen pete Infection Site: Skin / Soft Tissue
Duration of Therapy: 7 days morpHINE (4 2021- No 4mg 4 mg, Slow Univers mg/mL) 01-14 IV Push, ity of injection 4 07:00: 05:55 ONCE, 1 [place] mg 00 :00 dose, On Medical Sat Branch 01/14/22 at 0200, STAT iohexoL 2021- No [id number] 50mL 50 mL, Uni vers (OMNIPAQUE 01-14 Intravenou it y of 350 BULK-50 04:30: 04:09 s, ONCE, 1 [place] mL) 00 :00 dose, On Medical injection Fri Branch 50 mL 01/13/22 at 2330, Routine ondansetron 2021- No 4mg 4 mg, Slow Univers (ZOFRAN 01-14 IV Push, ity of (PF)) 04:00: 03:57 ONCE, 1 [place] injection 4 00 :00 dose, On Medi shukri mg Fri Branch 01/13/22 at 2300, THADDEUS morpHINE (4 2021- No 4mg 4 mg, Slow Univers mg/mL) 01-14 IV Push, ity of injection 4 04:00: 03:57 ONCE, 1 [place] mg 00 :00 dose, On Medical Fri Branch 01/13/22 at 2300, STAT NaCl 0.9% 2021- No 1000mL at 999 Uni vers (NS) bolus 6-11 06-11 mL/hr, ity of infusion 04:00: 05:39 1,000 mL, [place] 1,000 mL 00 :00 IV Medical Infusion, Branch ONCE, 1 dose, On Sun01/13/22 at 2300, THADDEUS cephALEXin 2021- No [id number] 500mg Take 1 Univers 500 mg 01-14 tablet by ity of tablet 00:00: 04:59 mouth 4 [place] 00 :00 (four) Medical times Branch daily for 7 days. metroNIDAZO 2021- No [id number] 500mg Take 1 Univers LE 500 mg 01-14 tablet by ity of tablet 00:00: 04:59 mouth 2 [place] 00 :00 (two) Medical times Branch daily for 7 days. ketorolac No 30mg 30 mg, Unive rs (TORADOL) 01-12 Intramuscu ity of injection 06:00: 05:01 lar, ONCE, [place] 30 mg 00 :00 1 dose, On Medical Cleo 01/12/22 Branch at 0100, THADDEUS HYDROcodone 2021- No 1{tbl} 1 tablet, Univers -acetaminop 01-12 Oral, ONCE i ty of hen (NORCO) 06:00: 05:02 NOW, 1 [place] 10-325 mg 00 :00 dose, On Medica l tablet 1 Cleo 01/12/22 Branc h tablet at 0100, Routine doxycycline No 100mg 100 mg, U nivers hyclate 01-12 Oral, ity of (Vibramycin 06:00: 05:01 ONCE, 1 [place] ) capsule 00 :00 dose, On Medica l 100 mg [facility] 01/12/22 Branch at 0100, THADDEUS
Re ason for Anti-Infec tive: Documented Infection< br>Documen pete Infection Site: Skin / Soft Tissue
Duration of Therapy: Other (see Comments) doxycycline Yes [id number] 100mg Take 1 Univers hyclate 100 01-12 capsule by it y of mg capsule 00:00: mouth 2 [place] 00 (two) Medical times Branch daily. doxycycline Yes [id number] 100mg Take 1 Univers hyclate 100 6-09 capsule by it y of mg capsule 00:00: mouth 2 [place] 00 (two) Medical times Branch daily. doxycycline 2021- No [id number] 100mg Take 1 Univers hyclate 100 6- 12-19 capsule by i ty of mg capsule 00:00: 00:00 mouth 2 [place] 00 :00 (two) Medical times Branch daily. doxycycline 2021- No [id number] 100mg Take 1 Univers hyclate 100 -04 17- capsule by i ty of mg capsule 00:00: 00:00 mouth 2 [place] 00 :00 (two) Medical times Branch daily. acetaminoph 2021- No [id number] 1{tbl} Take 1 U nivers en-codeine 6-04 11-17 tablet by ity of 300-30 mg 00:00: 04:59 mouth [place] tablet 00 :00 every 6 Medical (six) Branch hours as needed for Pain (scale 7-10) for up to 7 days. Indication s: acute pain acetaminoph 2021- No [id number] 1{tbl} Take 1 U nivers en-codeine - 06-17 tablet by ity of 300-30 mg 00:00: 04:59 mouth [place] tablet 00 :00 every 6 Medical (six) Branch hours as needed for Pain (scale 7-10) for up to 7 days. Indication s: acute pain lisdexamfet 2020-0 Yes [id number] 40mg Take 1 Univers amine 7-09 capsule by ity of (VYVANSE) 00:00: mouth [place] 40 mg 00 every Medical capsule morning. Branch lisdexamfet 2020-0 Yes [id number] 40mg Take 1 Univers amine 7-09 capsule by ity of (VYVANSE) 00:00: mouth [place] 40 mg 00 every Medical capsule morning. Branch lisdexamfet 2020-0 Yes [id number] 40mg Take 1 Univers amine 7-09 capsule by ity of (VYVANSE) 00:00: mouth [place] 40 mg 00 every Medical capsule morning. Branch lisdexamfet 2021- No [id number] 40mg Take 1 Univers amine 7-09 12-19 capsule by ity of (VYVANSE) 00:00: 00:00 mouth [place] 40 mg 00 :00 every Medical capsule morning. Branch lisdexamfet 2020-0 2- No [id number] 40mg Take 1 Univers amine 7-09 12-19 capsule by ity of (VYVANSE) 00:00: 00:00 mouth [place] 40 mg 00 :00 every Medical capsule morning. Branch methylPREDN 2020-0 Yes [id number] 84mg Take 21 Univers ISolone 7-02 tablets by ity of (MEDROL, 00:00: mouth [place] HELADIO,) 4 mg 00 SEE-INSTRU Med ical tablets CTIONS. Branch follow package directions methylPREDN 2020-0 Yes [id number] 84mg Take 21 Univers ISolone 7-02 tablets by ity of (MEDROL, 00:00: mouth [place] HELADIO,) 4 mg 00 SEE-INSTRU Med ical tablets CTIONS. Branch follow package directions methylPREDN 2020-0 Yes [id number] 84mg Take 21 Univers ISolone 7-02 tablets by ity of (MEDROL, 00:00: mouth [place] HELADIO,) 4 mg 00 SEE-INSTRU Med ical tablets CTIONS. Branch follow package directions methylPREDN 2020-0 2020- No [id number] 84mg Take 21 Univers ISolone 7-02 07-09 tablets by ity o f (MEDROL, 00:00: 00:00 mouth [place] HELADIO,) 4 mg 00 :00 SEE-INSTRU Med ical tablets CTIONS. Branch follow package directions lisdexamfet 2020-0 Yes [id number] 30mg Take 1 Univers amine 6-10 capsule by ity of (VYVANSE) 00:00: mouth [place] 30 mg 00 every Medical capsule morning. Branch lisdexamfet 2020-0 Yes [id number] 30mg Take 1 Univers amine 6-10 capsule by ity of (VYVANSE) 00:00: mouth [place] 30 mg 00 every Medical capsule morning. Branch lisdexamfet 2020-0 Yes [id number] 30mg Take 1 Univers amine 6-10 capsule by ity of (VYVANSE) 00:00: mouth [place] 30 mg 00 every Medical capsule morning. Branch lisdexamfet 2020-0 Yes [id number] 30mg Take 1 Univers amine 6-10 capsule by ity of (VYVANSE) 00:00: mouth [place] 30 mg 00 every Medical capsule morning. Branch lisdexamfet 2019-0 Yes [id number] 30mg Take 1 Univers amine 6-10 capsule by ity of (VYVANSE) 00:00: mouth [place] 30 mg 00 every Medical capsule morning. Branch lisdexamfet 0 2020- No [id number] 30mg Take 1 Univers amine 6-10 07-09 capsule by ity of (VYVANSE) 00:00: 00:00 mouth [place] 30 mg 00 :00 every Medical capsule morning. Branch ondansetron 2020- No 4mg Take 1 Uni vers (ZOFRAN 8-02 06-10 tablet by ity of ODT) 4 mg 00:00: 00:00 mouth [place] disintegrat 00 :00 every 8 Medic al ing tablet (eight) Branch hours as needed for Nausea and Vomiting (N/V). ondansetron 2020- No 4mg Take 1 Uni vers (ZOFRAN 8-02 06-10 tablet by ity of ODT) 4 mg 00:00: 00:00 mouth [place] disintegrat 00 :00 every 8 Medic al ing tablet (eight) Branch hours as needed for Nausea and Vomiting (N/V). traMADOL 2020- No 50mg Take 1 Tab Un gabbi (ULTRAM) 50 08-27-10 by mouth ity of mg tablet 00:00: 00:00 every 6 [place] 00 :00 (six) Medical hours as Branch needed for Pain (scale 4-6). Sharif Salas PA-C / Bucky Stroud MD [place]# [id number] [facility]# [id number] Lic.# [id number] [facility]# [id number] cyclobenzap 2020- No 5mg Take 1 Tab Univers rine 08-27 06-10 by mouth 3 ity of (FLEXERIL) 00:00: 00:00 (three) [place] 5 mg tablet 00 :00 times Medical daily. Branch traMADOL 2020- No 50mg Take 1 Tab Un gabbi (ULTRAM) 50 08-27 06-10 by mouth ity of mg tablet 00:00: 00:00 every 6 [place] 00 :00 (six) Medical hours as Branch needed for Pain (scale 4-6). Sharif Salas PA-C / Bucky Stroud MD [facility]# [id number] [facility]# [id number] x Lic.# [id number] [facility]# [id number] cyclobenzap 2019- No 5mg Take 1 Tab Univers rine 08-2710 by mouth 3 ity of (FLEXERIL) 00:00: 00:00 (three) [place] 5 mg tablet 00 :00 times Medical daily. Branch HYDROcodone 2019- No 1{tbl} Take 1 Tab Univers -acetaminop 02-21-10 by mouth ity of hen (NORCO) 00:00: 00:00 every 6 [place] 5-325 mg 00 :00 (six) Medical tablet hours as Branch needed for Pain (scale 7-10). HYDROcodone 2019- No 1{tbl} Take 1 Tab Univers -acetaminop 02-21-10 by mouth ity of hen (NORCO) 00:00: 00:00 every 6 [place] 5-325 mg 00 :00 (six) Medical tablet hours as Branch needed for Pain (scale 7-10). Vital Signs Vital Name Observation Time Observation Value Comments Source Systolic blood 2022-08-30 20:11:00 157 mm[Hg] Univer sity [facility] Diastolic blood 2022-08-30 20:11:00 96 mm[Hg] Unive [facility] Heart rate 2022-08-30 20:11:00 105 /min [facility] Body temperature 2022-08-30 20:11:00 37.11 Demi [facility] Oxygen saturation in 2022-08-30 20:11:00 99 /min [facility] Arterial blood by [facility] Pulse oximetry Branch Respiratory rate 2022-08-30 18:16:00 18 /min [facility] Body weight 2022-08-30 18:16:00 136.079 kg [facility] BMI 2022-08-30 18:16:00 40.69 kg/m2 [facility] Systolic blood 2022-07-26 17:40:00 137 mm[Hg] Univer sity [facility] Diastolic blood 2022-07-26 17:40:00 88 mm[Hg] Unive rsity of pressure [place] [facility] Heart rate 2022-07-26 17:40:00 76 /min [facility] [place] [facility] Body temperature 2022-07-26 17:40:00 36.28 Demi [facility] ers[facility] [place] [facility] Respiratory rate 2022-07-26 17:40:00 18 /min Univ ersity [facility] [place] [facility] Oxygen saturation in 2022-07-26 17:40:00 97 /min University of Arterial blood by [place] Get[facility] shukri Pulse oximetry Branch Body weight 2022-07-26 09:26:00 148.961 kg [facility] [place] [facility] BMI 2022-07-26 09:26:00 44.54 kg/m2 [facility] [place] [facility] Body height 2022-07-25 04:57:00 182.9 cm [facility] [place] [facility] Systolic blood 2022-07-25 19:05:00 140 mm[Hg] Univer sity of pressure [facility] Diastolic blood 2022-07-25 19:05:00 81 mm[Hg] [facility] Heart rate 2022-07-25 19:05:00 79 /min [facility] Body temperature 2022-07-25 19:05:00 36 Demi [facility] Respiratory rate 2022-07-25 19:05:00 18 /min [facility] Oxygen saturation in 2022-07-25 19:05:00 94 /min [facility] Arterial blood by [place] [facility] P[facility] oxim[facility] Body weight 2022-07-25 09:13:00 149.188 kg [facility] BMI 2022-07-25 09:13:00 44.54 kg/m2 [facility] Body height 2022-07-25 04:57:00 182.9 cm [facility] Systolic blood 2022-01-14 03:50:00 140 mm[Hg] [facility] Diastolic blood 2022-01-14 03:50:00 83 mm[Hg] Unive [facility] Heart rate 2022-01-14 03:50:00 83 /min [facility] Respiratory rate 2022-01-14 03:50:00 18 /min [facility] Oxygen saturation in 2022-01-14 03:50:00 98 /min [facility] Arterial blood by [place] [facility] Body temperature 2022-01-14 02:22:00 37.67 Demi [facility] Body height 2022-01-14 02:22:00 182.9 cm [facility] [place] [facility] Body weight 2022-01-14 02:22:00 135.626 kg [facility] BMI 2022-01-14 02:22:00 40.55 kg/m2 [facility] Systolic blood 2022-01-12 05:26:00 141 mm[Hg] Univer [facility] Diastolic blood 2022-01-12 05:26:00 82 mm[Hg] Unive rsity of [facility] Heart rate 2022-01-12 05:26:00 78 /min [facility] [place] [facility] Respiratory rate 2022-01-12 05:26:00 16 /min Univ ersity of [facility] Oxygen saturation in 2022-01-12 05:26:00 97 /min [facility] Arterial blood by [facility] shukri Pulse oximetry Branch Body temperature 2022-01-12 04:38:00 36.89 Demi [facility] [place] [facility] Body height 2022-01-12 04:38:00 182.9 cm [facility] Body weight 2022-01-12 04:38:00 131.543 kg [facility] BMI 2022-01-12 04:38:00 39.33 kg/m2 [facility] Systolic blood 2020-02-05 19:45:00 132 mm[Hg] Univer [facility]ity of [facility] Diastolic blood 2020-02-05 19:45:00 75 mm[Hg] Unive rsity of [facility] Respiratory rate 2020-02-05 19:45:00 18 /min [facility] Body height 2020-02-05 19:45:00 182.9 cm [facility] Body weight 2020-02-05 19:45:00 157.852 kg [facility] BMI 2020-02-05 19:45:00 47.20 kg/m2 [facility] Systolic blood 2020-01-14 18:36:00 134 mm[Hg] Univer [facility]ity of pressure [facility] Diastolic blood 2020-01-14 18:36:00 88 mm[Hg] Unive rsity of pressure [facility] Heart rate 2020-01-14 18:36:00 86 /min [facility] Body temperature 2020-01-14 18:36:00 36.56 Demi [facility] height 2020-01-14 18:36:00 182.9 cm [facility] Body weight 2020-01-14 18:36:00 157.852 kg [facility] BMI 2020-01-14 18:36:00 47.20 kg/m2 [facility] Procedures Procedure Date / Time Performed Performing Clinician [facility] CONSENT/REFUSAL FOR 2022-08-30 18:07:40 Doctor Unassigned, No Un [facility] DIAGNOSIS AND Name Medical Branch TREATMENT BASIC METABOLIC PANEL 2022-07-26 10:08:00 [facility], K, CL, CO2, Medical Branch GLUCOSE, BUN, CREATININE, CA) CBC WITH DIFF 2022-07-26 10:08:00 Mary Tatum [facility] BASIC METABOLIC PANEL 2022-07-26 10:08:00 [facility] [place] (NA, K, CL, CO2, Medical Branch GLUCOSE, BUN, CREATININE, CA) CBC WITH DIFF 2022-07-26 10:08:00 Mary Tatum [facility] ASPIRATE OR ABSCESS 2022-07-25 17:44:00 Marquita Smith [facility] CULTURE(AEROBIC/ANAER Medical Br anch OBIC) ASPIRATE OR ABSCESS 2022-07-25 17:44:00 Marquita Smith [facility] CULTURE(AEROBIC/ANAER Medical Br anch OBIC) PILONIDAL CYST 2022-07-25 17:06:00 Marquita Smith [facility] PILONIDAL CYST 2022-07-25 17:06:00 Marquita Smith [facility] BASIC METABOLIC PANEL 2022-07-25 09:10[facility], [facility], CL, CO[facility], [facility] Branch GLUCOSE, BUN, CREATININE, CA) CBC WITH DIFF 2022-07-25 09:10:00 Sania [facility] BASIC METABOLIC PANEL 2022-07-25 09:10:00 [facility] (NA, K, CL, CO2, Medical Branch GLUCOSE, BUN, CREATININE, CA) CBC WITH DIFF 2022-07-25 09:10:00 Sania [facility] CT PELVIS W CONTRAST 2022-07-25 02:48:[address] [facility] CT PELVIS W CONTRAST 2022-07-25 02:48:[address] [facility] COMP. METABOLIC PANEL 2022-07-25 02:09:00 Reid [facility] ([id number]) [facility] CBC WITH DIFF 2022-07-25 02:09:00 Reid [facility] COMP. METABOLIC PANEL 2022-07-25 02:09:00 Reid [facility] ([id number]) [facility] CBC WITH DIFF 2022-07-25 02:09:00 Reid [facility] CONSENT/REFUSAL FOR 2022-07-25 01:04:36 Doctor [facility], [facility] TREATMENT CONSENT/REFUSAL FOR 2022-07-25 01:04:36 Doctor [facility]igned, [facility] Name [facility] TREATMENT GA DRAIN PILONIDAL 2022-01-14 07:05:47 Rebecca Jaimes [facility] CYST COMPLIC [facility] COMP. METABOLIC PANEL 2022-01-14 04:54:00 [id number] CT PELVIS W CONTRAST 2022-01-14 04:15:04 Rebecca Jaimes [facility] CBC WITH DIFF 2022-01-14 03:54:00 Rebecca Jaimes [facility] NOTICE OF PRIVACY 2022-01-14 02:01:00 Doctor Unassigned, No [facility] [place] [facility] Name [facility] Branch CONSENT/REFUSAL FOR 2022-01-14 02:00:05 Doctor Unassigned, No [facility] [place] DIAGNOSIS AND Name Medical Branch TREATMENT NOTICE OF PRIVACY 2022-01-12 04:19:57 [facility]igned, No [facility] CONSENT/REFUSAL FOR 2022-01-12 04:19:28 Doctor Unassigned, No Un [facility] [place] DIAGNOSIS AND Name Medical Branch TREATMENT Encounters Start End Encounter Admission Attending Care Care Encounter Source Date/Time Date/Time Type Type Clinicians Facility Department ID 2022-08-30 2022-08-30 Emergency X [facility] ERT [id number] Univers 12:18:00 14:15:[address] [facility] 2022-08-30 2022-08-30 Emergency [facility] [id number] Univers 12:18:00 14:15:00 Ted KAPOOR [id number] i ty of [facility] 4.2.7.2.686 [facility] [phone] [facility] 084 Branch 2022-07-24 2022-07-26 Outpatient X MEENA RUST ZULY [id number] Univers 19:13:00 15:21:[address] [facility] 2022-07-24 2022-07-26 Emergency Osmar Mathews RUST [id number]. [id number] Univers 19:13:00 15:21:00 Eduardo Ordoñez 350.1.13.10 ity Christopher Robledo 4.2.7.2.686 [facility] [id number] [facility] 081 Branch 2022-07-25 2022-07-25 Surgery Luis RUST [id number] Univers 11:15:00 13:05:00 Marquita KAPOOR 350.1.13.10 i ty of JAMES 4.2.7.2.686 [facility] SURGICAL [phone] [facility] 020 Branch 2022-01-13 2022-01-14 Emergency X THEODORE RUST ERT [id number] Univers 21:26:00 02:39:[address] [facility] 2022-01-13 2022-01-14 Emergency IbR [facility] [id number] Univers 21:26:00 02:39:00 Rebecca KAPOOR [id number] ity of [facility] [place] [id number] [address] 2022-01-11 2022-01-12 Emergency X [facility] ERT [id number] Univers 23:30:00 00:29:[address] [facility] 2022-01-11 2022-01-12 Emergency [facility] [id number] Univers 23:30:00 00:29:00 Maximo Ashlee ANTWON 350.1.13.10 i ty of [facility] 4[place].2.[place] [id number] [address] 2020-02-13 2020-02-13 Outpatient Ashlee [facility] [id number] Univers 09:15:00 09:15:00 DIXIE [facility] 2020-02-12 2020-02-12 [facility]patient [facility] [id number] Univers 15:30:00 15:30:00 DIXIE [facility] 2020-02-12 2020-02-12 [facility] [id number] Univers 09:12:46 09:27:46 ne Visit Dixie Kapoor [id number] ity [place] [facility] [phone] Me dical nal 044 [facility] 2020-02-05 2020-02-05 Office [facility] [id number] Univers 14:37:28 15:54:58 Visit [facility] 350.1.13.10 it y of Surgical 4.2.7.2.686 [place] as Specialti [id number] Me dical es 198 [facility] 2020-02-05 2020-02-05 Outpatient R [facility] [id number] Univers 15:15:00 15:15:00 ARIEL [facility] 2020-01-22 2020-01-22 [facility] [id number] Univers 09:30:00 09:30:00 SHERRY [facility] 2020-01-14 2020-01-14 Office [facility] [id number] Univers 13:29:06 13:59:06 Visit Dixie Kapoor 350.1.13.10 i ty of [place]2.686 [place] [phone] [place] dical nal [address] [place] [address] 2020-01-14 2020-01-14 Outpatient [facility] [id number] Univers 13:30:00 13:30:00 DIXIE [facility] Results Test Description Test Time Test Comments Results Result Comments Source CBC WITH DIFF 2022-07-26 10:59:15 Test Item Value Reference Range Interpretation Comme nts WBC (test code = 6690-2) See_Comment H [A utomated message] The system which ge nerated this result transmit pete reference range: 4.20 - 1 0.70 10*3/?L. The reference r anastasiia was not used to interpr et this result as normal/abnor mal. RBC (test code = 789-8) See_Comment [Au tomated message] The system which ge nerated this result transmit pete reference range: 4.26 - 5 .52 10*6/?L. The reference r anastasiia was not used to interpr et this result as normal/abnor mal. HGB (test code = 718-7) 14.8 g/dL 12.2-16.4 HCT (test code = 4544-3) 43.1 % 38.4-49.3 MCV (test code = 787-2) 86.2 fL 81.7-95.6 MCH (test code = 785-6) 29.6 pg 26.1-32.7 MCHC (test code = 786-4) 34.3 g/dL 31.2-35.0 RDW-SD (test code = 56559-6) 38.9 fL 38.5-51.6 RDW-CV (test code = 788-0) 12.4 % 12.1-15.4 PLT (test code = 777-3) See_Comment [Au tomated message] The system which ge nerated this result transmit pete reference range: 150 - 32 8 10*3/?L. The reference range was not used to interpret th is result as normal/abnormal . MPV (test code = 61995-7) 9.5 fL 9.8-13.0 L NRBC/100 WBC (test code = See_Comment [ Automated message] The 4765698898) system which ge nerated this result transmit pete reference range: 0.0 - 10 .0 /100 WBCs. The reference r anastasiia was not used to interpr et this result as normal/abnor mal. NRBC x10^3 (test code = See_Comment [Au tomated message] The 9500761872) system which ge nerated this result transmit pete reference range: 10*3/?L. The reference range was not u sed to interpret this result as normal/abnormal . GRAN MAT (NEUT) % (test code 81.1 % = 770-8) IMM GRAN % (test code = 0.50 % 8875092268) LYMPH % (test code = 736-9) 13.2 % MONO % (test code = 5905-5) 4.9 % EOS % (test code = 713-8) 0.1 % BASO % (test code = 706-2) 0.2 % GRAN MAT x10^3(ANC) (test 13.52 10*3/uL 1.99-6.95 H code = 8829619277) IMM GRAN x10^3 (test code = 0.09 10*3/uL 0.00-0.06 H 1309942779) LYMPH x10^3 (test code = 2.20 10*3/uL 1.09-3.23 731-0) MONO x10^3 (test code = 0.81 10*3/uL 0.36-1.02 742-7) EOS x10^3 (test code = 0.06-0.53 L 711-2) BASO x10^3 (test code = 0.03 10*3/uL 0.01-0.09 704-7) Lab Interpretation (test Abnormal code = 92623-1) [facility] WITH [id number] 10:59:15 Test Item Value Reference Range Interpretation Comments WBC (test code = See_Comment H [Automated 6690-2) message] The system which generated this result transmit pete reference range : 4.20 - 10.70 10*3/?L. The reference range was not used to interpret this result as normal/abnormal . RBC (test code = See_Comment [Automated 789-8) message] The system which generated this result transmit pete reference range : 4.26 - 5.52 10*6/?L. The reference range was not used to interpret this result as normal/abnormal . HGB (test code = 14.8 g/dL 12.2-16.4 718-7) HCT (test code = 43.1 % 38.4-49.3 4544-3) MCV (test code = 86.2 fL 81.7-95.6 787-2) MCH (test code = 29.6 pg 26.1-32.7 785-6) MCHC (test code = 34.3 g/dL 31.2-35.0 786-4) RDW-SD (test code = 38.9 fL 38.5-51.6 19179-2) RDW-CV (test code = 12.4 % 12.1-15.4 788-0) PLT (test code = See_Comment [Automated 777-3) message] The system which generated this result transmit pete reference range : 150 - 328 10*3/ ?L. The reference range was not u sed to interpret th is result as normal/abnormal . MPV (test code = 9.5 fL 9.8-13.0 L 40878-3) NRBC/100 WBC (test See_Comment [Automat ed code = 3730134576) message] The system which generated this result transmit pete reference range : 0.0 - 10.0 /100 WBCs. The reference range was not used to interpret this result as normal/abnormal . NRBC x10^3 (test code See_Comment [Auto mated = 6338149121) message] The system which generated this result transmit pete reference range : 10*3/?L. The reference range was not used to interpret this result as normal/abnormal . GRAN MAT (NEUT) % 81.1 % (test code = 770-8) IMM GRAN % (test code 0.50 % = 5229681161) LYMPH % (test code = 13.2 % 736-9) MONO % (test code = 4.9 % 5905-5) EOS % (test code = 0.1 % 713-8) BASO % (test code = 0.2 % 706-2) GRAN MAT x10^3(ANC) 13.52 10*3/uL 1.99-6.95 H (test code = 1782684905) IMM GRAN x10^3 (test 0.09 10*3/uL 0.00-0.06 H code = 4685823746) LYMPH x10^3 (test code 2.20 10*3/uL 1.09-3.23 = 731-0) MONO x10^3 (test code 0.81 10*3/uL 0.36-1.02 = 742-7) EOS x10^3 (test code = 0.06-0.53 L 711-2) BASO x10^3 (test code 0.03 10*3/uL 0.01-0.09 = 704-7) Lab Interpretation Abnormal (test code = 20328-1) [facility] METABOLIC PANEL (NA, K, CL, CO2, GLUCOSE, BUN, CREATININE, CA)2022-07-26 10:51:36 Test Item Value Reference Range Interpretation Comments NA (test code = 136 mmol/L 135-145 4047917157) K (test code = 3.9 mmol/L 3.5-5.0 0752675052) CL (test code = 104 mmol/L 98-108 0502020081) CO2 TOTAL (test code = 22 mmol/L 23-31 L 5244639462) AGAP (test code = 2-16 8844517287) BUN (test code = 9 mg/dL 7-23 6962912832) GLUCOSE (test code = 107 mg/dL 70-110 2077401162) CREATININE (test code = 0.62 mg/dL 0.60-1.25 4957360513) CALCIUM (test code = 9.2 mg/dL 8.6-10.6 7264474939) eGFR (test code = mL/min/1.73m2 4420148512) KENYETTA (test code = KENYETTA) Association of Glomerular Filtration Rate (GFR) and Staging of Kidney Disease* + --+ --+ ------+| GFR (mL/min/1.73 m2) ?| With Kidney Damage ?| ?Without Kidney Damage+ --------+ --------+ +| ?>90 ?| ?Stage one ?| ? Normal ?+ ---+ ---+ -------+| ?60-89 ?| ?Stage two ?| ? Decreased GFR ? + --+ --+ ------+| ?30-59 ?| ?Stage three ?| ? Stage three ? + --+ --+ ------+| ?15-29 ?| ?Stage four ? | ? Stage four ?+ ---+ ---+ -------+| ?<15 (or dialysis) ? ?| ?Stage five ? | ? Stage five ?+ ---+ ---+ -------+ *Each stage assumes the associated GFR level has been in effect for at least three months. ?Stages 1 to 5, with or without kidney disease, indicate chronic kidney disease. Notes: Determination of stages one and two (with eGFR >59mL/min/1.73 m2) requires estimation of kidney damage for at least three months as defined by structural or functional abnormalities of the kidney, manifested by either:Pathological abnormalities or Markers of kidney damage (including abnormalities in the composition of the blood or urine or abnormalities in imaging tests). Lab Interpretation Abnormal (test code = 51027-1) [facility] METABOLIC PANEL (NA, K, CL, CO2, GLUCOSE, BUN, CREATININE, CA)2022-07-26 10:51:36 Test Item Value Reference Range Interpretation Comments NA (test code = 136 mmol/L 135-145 6535239182) K (test code = 3.9 mmol/L 3.5-5.0 2069235677) CL (test code = 104 mmol/L 98-108 5271055790) CO2 TOTAL (test code = 22 mmol/L 23-31 L 6249436023) AGAP (test code = 2-16 8824950052) BUN (test code = 9 mg/dL 7-23 2359161465) GLUCOSE (test code = 107 mg/dL 70-110 4262781735) CREATININE (test code = 0.62 mg/dL 0.60-1.25 4985387154) CALCIUM (test code = 9.2 mg/dL 8.6-10.6 8641170041) eGFR (test code = mL/min/1.73m2 1799483080) KENYETTA (test code = KENYETTA) Association of Glomerular Filtration Rate (GFR) and Staging of Kidney Disease* + --+ --+ ------+| GFR (mL/min/1.73 m2) ?| With Kidney Damage ?| ?Without Kidney Damage+ --------+ --------+ +| ?>90 ?| ?Stage one ?| ? Normal ?+ ---+ ---+ -------+| ?60-89 ?| ?Stage two ?| ? Decreased GFR ? + --+ --+ ------+| ?30-59 ?| ?Stage three ?| ? Stage three ? + --+ --+ ------+| ?15-29 ?| ?Stage four ? | ? Stage four ?+ ---+ ---+ -------+| ?<15 (or dialysis) ? ?| ?Stage five ? | ? Stage five ?+ ---+ ---+ -------+ *Each stage assumes the associated GFR level has been in effect for at least three months. ?Stages 1 to 5, with or without kidney disease, indicate chronic kidney disease. Notes: Determination of stages one and two (with eGFR >59mL/min/1.73 m2) requires estimation of kidney damage for at least three months as defined by structural or functional abnormalities of the kidney, manifested by either:Pathological abnormalities or Markers of kidney damage (including abnormalities in the composition of the blood or urine or abnormalities in imaging tests). Lab Interpretation Abnormal (test code = 31174-3) [facility] with [id number] 10:39:06 Test Item Value Reference Range Interpretation Comments WBC (test code = See_Comment H [Automated 6232-2) message] The sy stem which generated this result transmitted reference range : 4.20 - 10.70 10*3/?L. The reference range was not used to interpret this result as normal/abnormal . RBC (test code = See_Comment [Automated 789-8) message] The sy stem which generated this result transmitted reference range : 4.26 - 5.52 10*6/?L. The reference range was not used to interpret this result as normal/abnormal . HGB (test code = 13.8 g/dL 12.2-16.4 718-7) HCT (test code = 41.4 % 38.4-49.3 4544-3) MCV (test code = 87.7 fL 81.7-95.6 787-2) MCH (test code = 29.2 pg 26.1-32.7 785-6) MCHC (test code = 33.3 g/dL 31.2-35.0 786-4) RDW-SD (test code = 42.1 fL 38.5-51.6 27581-4) RDW-CV (test code = 13.2 % 12.1-15.4 788-0) PLT (test code = See_Comment [Automated 777-3) message] The sy stem which generated this result transmitted reference range : 150 - 328 10*3/ ?L. The reference r anastasiia was not used to interpret this result as normal/abnormal . MPV (test code = 9.6 fL 9.8-13.0 L 14267-1) NRBC/100 WBC (test See_Comment [Automat ed code = 1591825158) message] The system which generated this result transmitted reference range : 0.0 - 10.0 /100 WBCs. The refer ence range was not u sed to interpret th is result as normal/abnormal . NRBC x10^3 (test code See_Comment [Auto mated = 6002559321) message] The s ystem which generated this result transmitted reference range : 10*3/?L. The reference range was not used to interpret this result as normal/abnormal . GRAN MAT (NEUT) % 56.1 % (test code = 770-8) IMM GRAN % (test code 0.50 % = 1716547273) LYMPH % (test code = 31.8 % 736-9) MONO % (test code = 7.8 % 5905-5) EOS % (test code = 3.3 % 713-8) BASO % (test code = 0.5 % 706-2) GRAN MAT x10^3(ANC) 7.15 10*3/uL 1.99-6.95 H (test code = 8806288753) IMM GRAN x10^3 (test 0.06 10*3/uL 0.00-0.06 code = 7930291215) LYMPH x10^3 (test code 4.04 10*3/uL 1.09-3.23 H = 731-0) MONO x10^3 (test code 0.99 10*3/uL 0.36-1.02 = 742-7) EOS x10^3 (test code = 0.42 10*3/uL 0.06-0.53 711-2) BASO x10^3 (test code 0.06 10*3/uL 0.01-0.09 = 704-7) Lab Interpretation Abnormal (test code = 00217-7) [facility] with [id number] 10:39:06 Test Item Value Reference Range Interpretation Comments WBC (test code = See_Comment H [Automated 3790-2) message] The sy stem which generated this result transmitted reference range : 4.20 - 10.70 10*3/?L. The reference range was not used to interpret this result as normal/abnormal . RBC (test code = See_Comment [Automated 839-8) message] The sy stem which generated this result transmitted reference range : 4.26 - 5.52 10*6/?L. The reference range was not used to interpret this result as normal/abnormal . HGB (test code = 13.8 g/dL 12.2-16.4 718-7) HCT (test code = 41.4 % 38.4-49.3 4544-3) MCV (test code = 87.7 fL 81.7-95.6 787-2) MCH (test code = 29.2 pg 26.1-32.7 785-6) MCHC (test code = 33.3 g/dL 31.2-35.0 786-4) RDW-SD (test code = 42.1 fL 38.5-51.6 93196-9) RDW-CV (test code = 13.2 % 12.1-15.4 788-0) PLT (test code = See_Comment [Automated 777-3) message] The sy stem which generated this result transmitted reference range : 150 - 328 10*3/ ?L. The reference r anastasiia was not used to interpret this result as normal/abnormal . MPV (test code = 9.6 fL 9.8-13.0 L 19878-3) NRBC/100 WBC (test See_Comment [Automat ed code = 7768793255) message] The system which generated this result transmitted reference range : 0.0 - 10.0 /100 WBCs. The refer ence range was not u sed to interpret th is result as normal/abnormal . NRBC x10^3 (test code See_Comment [Auto mated = 1300027054) message] The s ystem which generated this result transmitted reference range : 10*3/?L. The reference range was not used to interpret this result as normal/abnormal . GRAN MAT (NEUT) % 56.1 % (test code = 770-8) IMM GRAN % (test code 0.50 % = 9319191495) LYMPH % (test code = 31.8 % 736-9) MONO % (test code = 7.8 % 5905-5) EOS % (test code = 3.3 % 713-8) BASO % (test code = 0.5 % 706-2) GRAN MAT x10^3(ANC) 7.15 10*3/uL 1.99-6.95 H (test code = 5412305805) IMM GRAN x10^3 (test 0.06 10*3/uL 0.00-0.06 code = 3480904327) LYMPH x10^3 (test code 4.04 10*3/uL 1.09-3.23 H = 731-0) MONO x10^3 (test code 0.99 10*3/uL 0.36-1.02 = 742-7) EOS x10^3 (test code = 0.42 10*3/uL 0.06-0.53 711-2) BASO x10^3 (test code 0.06 10*3/uL 0.01-0.09 = 704-7) Lab Interpretation Abnormal (test code = 69296-1) [facility] Metabolic Panel (NA, K, CL, CO2, GLUCOSE, BUN, CREATININE, CA)2022-07-25 10:10:01 Test Item Value Reference Range Interpretation Comments NA (test code = 138 mmol/L 135-145 7933368400) K (test code = 4.0 mmol/L 3.5-5.0 4860502483) CL (test code = 104 mmol/L 98-108 4594703639) CO2 TOTAL (test code 26 mmol/L 23-31 = 9422051671) AGAP (test code = 2-16 6205164686) BUN (test code = 16 mg/dL 7-23 9307015929) GLUCOSE (test code = 96 mg/dL 70-110 6046091296) CREATININE (test code 1.06 mg/dL 0.60-1.25 = 1348693868) CALCIUM (test code = 9.0 mg/dL 8.6-10.6 9494125999) eGFR (test code = mL/min/1.73m2 2606123792) KENYETTA (test code = KENYETTA) Association of Glomerular Filtration Rate (GFR) and Staging of Kidney Disease* + + +- +| GFR (mL/min/1.73 m2) ?| With Kidney Damage ?| ?Without Kidney Damage+ ------+ ----+ ------+| ?>90 ?| ?Stage one ?| ? Normal ?+ -+ + -+| ?60-89 ?| ?Stage two ?| ? Decreased GFR ? + + +- +| ?30-59 ?| ?Stage three ?| ? Stage three ? + + +- +| ?15-29 ?| ?Stage four ? | ? Stage four ?+ -+ + -+| ?<15 (or dialysis) ? ?| ?Stage five ? | ? Stage five ?+ -+ + -+ *Each stage assumes the associated GFR level has been in effect for at least three months. ?Stages 1 to 5, with or without kidney disease, indicate chronic kidney disease. Notes: Determination of stages one and two (with eGFR >59mL/min/1.73 m2) requires estimation of kidney damage for at least three months as defined by structural or functional abnormalities of the kidney, manifested by either:Pathological abnormalities or Markers of kidney damage (including abnormalities in the composition of the blood or urine or abnormalities in imaging tests). [facility] Metabolic Panel (NA, K, CL, CO2, GLUCOSE, BUN, CREATININE, CA)2022-07-25 10:10:01 Test Item Value Reference Range Interpretation Comments NA (test code = 138 mmol/L 135-145 6927383424) K (test code = 4.0 mmol/L 3.5-5.0 2418956177) CL (test code = 104 mmol/L 98-108 5707076721) CO2 TOTAL (test code 26 mmol/L 23-31 = 7460785171) AGAP (test code = 2-16 2945943582) BUN (test code = 16 mg/dL 7-23 6419308761) GLUCOSE (test code = 96 mg/dL 70-110 4650965541) CREATININE (test code 1.06 mg/dL 0.60-1.25 = 8480526246) CALCIUM (test code = 9.0 mg/dL 8.6-10.6 6441447660) eGFR (test code = mL/min/1.73m2 8757523947) KENYETTA (test code = KENYETTA) Association of Glomerular Filtration Rate (GFR) and Staging of Kidney Disease* + + +- +| GFR (mL/min/1.73 m2) ?| With Kidney Damage ?| ?Without Kidney Damage+ ------+ ----+ ------+| ?>90 ?| ?Stage one ?| ? Normal ?+ -+ + -+| ?60-89 ?| ?Stage two ?| ? Decreased GFR ? + + +- +| ?30-59 ?| ?Stage three ?| ? Stage three ? + + +- +| ?15-29 ?| ?Stage four ? | ? Stage four ?+ -+ + -+| ?<15 (or dialysis) ? ?| ?Stage five ? | ? Stage five ?+ -+ + -+ *Each stage assumes the associated GFR level has been in effect for at least three months. ?Stages 1 to 5, with or without kidney disease, indicate chronic kidney disease. Notes: Determination of stages one and two (with eGFR >59mL/min/1.73 m2) requires estimation of kidney damage for at least three months as defined by structural or functional abnormalities of the kidney, manifested by either:Pathological abnormalities or Markers of kidney damage (including abnormalities in the composition of the blood or urine or abnormalities in imaging tests). [facility]. METABOLIC PANEL ([id number])2022-07-25 02:38:15 Test Item Value Reference Range Interpretation Comments NA (test code = 139 mmol/L 135-145 6982222696) K (test code = 4.4 mmol/L 3.5-5.0 0878402826) CL (test code = 104 mmol/L 98-108 7045590021) CO2 TOTAL (test code 25 mmol/L 23-31 = 2773129058) AGAP (test code = 2-16 8458566238) BUN (test code = 16 mg/dL 7-23 0400474360) GLUCOSE (test code = 88 mg/dL 70-110 4077242503) CREATININE (test code 0.91 mg/dL 0.60-1.25 = 1143680072) TOTAL BILI (test code 0.4 mg/dL 0.1-1.1 = 7325247641) CALCIUM (test code = 9.9 mg/dL 8.6-10.6 5509462053) T PROTEIN (test code 8.0 g/dL 6.3-8.2 = 5418000439) ALBUMIN (test code = 4.9 g/dL 3.5-5.0 3807820441) ALK PHOS (test code = 108 U/L 34-122 8686584982) ALTv (test code = 31 U/L 5-50 1742-6) AST(SGOT) (test code 27 U/L 13-40 = 3601479360) eGFR (test code = mL/min/1.73m2 4020607383) KENYETTA (test code = KENYETTA) Association of Glomerular Filtration Rate (GFR) and Staging of Kidney Disease* + + +- +| GFR (mL/min/1.73 m2) ?| With Kidney Damage ?| ?Without Kidney Damage+ ------+ ----+ ------+| ?>90 ?| ?Stage one ?| ? Normal ?+ -+ + -+| ?60-89 ?| ?Stage two ?| ? Decreased GFR ? + + +- +| ?30-59 ?| ?Stage three ?| ? Stage three ? + + +- +| ?15-29 ?| ?Stage four ? | ? Stage four ?+ -+ + -+| ?<15 (or dialysis) ? ?| ?Stage five ? | ? Stage five ?+ -+ + -+ *Each stage assumes the associated GFR level has been in effect for at least three months. ?Stages 1 to 5, with or without kidney disease, indicate chronic kidney disease. Notes: Determination of stages one and two (with eGFR >59mL/min/1.73 m2) requires estimation of kidney damage for at least three months as defined by structural or functional abnormalities of the kidney, manifested by either:Pathological abnormalities or Markers of kidney damage (including abnormalities in the composition of the blood or urine or abnormalities in imaging tests). [facility]. METABOLIC PANEL ([id number])2022-07-25 02:38:15 Test Item Value Reference Range Interpretation Comments NA (test code = 139 mmol/L 135-145 5451777610) K (test code = 4.4 mmol/L 3.5-5.0 9030456286) CL (test code = 104 mmol/L 98-108 9497677608) CO2 TOTAL (test code 25 mmol/L 23-31 = 4198869395) AGAP (test code = 2-16 3233627431) BUN (test code = 16 mg/dL 7-23 4583459148) GLUCOSE (test code = 88 mg/dL 70-110 7269974936) CREATININE (test code 0.91 mg/dL 0.60-1.25 = 7148351908) TOTAL BILI (test code 0.4 mg/dL 0.1-1.1 = 3920963192) CALCIUM (test code = 9.9 mg/dL 8.6-10.6 1505967872) T PROTEIN (test code 8.0 g/dL 6.3-8.2 = 8830024516) ALBUMIN (test code = 4.9 g/dL 3.5-5.0 1670796138) ALK PHOS (test code = 108 U/L 34-122 4492173772) ALTv (test code = 31 U/L 5-50 1742-6) AST(SGOT) (test code 27 U/L 13-40 = 1665125355) eGFR (test code = mL/min/1.73m2 5898487298) KENYETTA (test code = KENYETTA) Association of Glomerular Filtration Rate (GFR) and Staging of Kidney Disease* + + +- +| GFR (mL/min/1.73 m2) ?| With Kidney Damage ?| ?Without Kidney Damage+ ------+ ----+ ------+| ?>90 ?| ?Stage one ?| ? Normal ?+ -+ + -+| ?60-89 ?| ?Stage two ?| ? Decreased GFR ? + + +- +| ?30-59 ?| ?Stage three ?| ? Stage three ? + + +- +| ?15-29 ?| ?Stage four ? | ? Stage four ?+ -+ + -+| ?<15 (or dialysis) ? ?| ?Stage five ? | ? Stage five ?+ -+ + -+ *Each stage assumes the associated GFR level has been in effect for at least three months. ?Stages 1 to 5, with or without kidney disease, indicate chronic kidney disease. Notes: Determination of stages one and two (with eGFR >59mL/min/1.73 m2) requires estimation of kidney damage for at least three months as defined by structural or functional abnormalities of the kidney, manifested by either:Pathological abnormalities or Markers of kidney damage (including abnormalities in the composition of the blood or urine or abnormalities in imaging tests). [facility] WITH [id number] 02:23:32 Test Item Value Reference Range Interpretation Comments WBC (test code = See_Comment H [Automated 2719-2) message] The sy stem which generated this result transmitted reference range : 4.20 - 10.70 10*3/?L. The reference range was not used to interpret this result as normal/abnormal . RBC (test code = See_Comment [Automated 009-8) message] The sy stem which generated this result transmitted reference range : 4.26 - 5.52 10*6/?L. The reference range was not used to interpret this result as normal/abnormal . HGB (test code = 14.8 g/dL 12.2-16.4 718-7) HCT (test code = 44.0 % 38.4-49.3 4544-3) MCV (test code = 87.1 fL 81.7-95.6 787-2) MCH (test code = 29.3 pg 26.1-32.7 785-6) MCHC (test code = 33.6 g/dL 31.2-35.0 786-4) RDW-SD (test code = 41.7 fL 38.5-51.6 45540-6) RDW-CV (test code = 13.2 % 12.1-15.4 788-0) PLT (test code = See_Comment [Automated 777-3) message] The sy stem which generated this result transmitted reference range : 150 - 328 10*3/ ?L. The reference r anastasiia was not used to interpret this result as normal/abnormal . MPV (test code = 9.5 fL 9.8-13.0 L 70006-0) NRBC/100 WBC (test See_Comment [Automat ed code = 3505728340) message] The system which generated this result transmitted reference range : 0.0 - 10.0 /100 WBCs. The refer ence range was not u sed to interpret th is result as normal/abnormal . NRBC x10^3 (test code See_Comment [Auto mated = 3528437774) message] The s ystem which generated this result transmitted reference range : 10*3/?L. The reference range was not used to interpret this result as normal/abnormal . GRAN MAT (NEUT) % 59.7 % (test code = 770-8) IMM GRAN % (test code 0.50 % = 3469145655) LYMPH % (test code = 28.3 % 736-9) MONO % (test code = 8.0 % 5905-5) EOS % (test code = 3.0 % 713-8) BASO % (test code = 0.5 % 706-2) GRAN MAT x10^3(ANC) 8.17 10*3/uL 1.99-6.95 H (test code = 9877244841) IMM GRAN x10^3 (test 0.07 10*3/uL 0.00-0.06 H code = 3839882285) LYMPH x10^3 (test code 3.88 10*3/uL 1.09-3.23 H = 731-0) MONO x10^3 (test code 1.09 10*3/uL 0.36-1.02 H = 742-7) EOS x10^3 (test code = 0.41 10*3/uL 0.06-0.53 711-2) BASO x10^3 (test code 0.07 10*3/uL 0.01-0.09 = 704-7) Lab Interpretation Abnormal (test code = 85562-0) [facility] WITH [id number] 02:23:32 Test Item Value Reference Range Interpretation Comments WBC (test code = See_Comment H [Automated 9890-2) message] The sy stem which generated this result transmitted reference range : 4.20 - 10.70 10*3/?L. The reference range was not used to interpret this result as normal/abnormal . RBC (test code = See_Comment [Automated 589-8) message] The sy stem which generated this result transmitted reference range : 4.26 - 5.52 10*6/?L. The reference range was not used to interpret this result as normal/abnormal . HGB (test code = 14.8 g/dL 12.2-16.4 718-7) HCT (test code = 44.0 % 38.4-49.3 4544-3) MCV (test code = 87.1 fL 81.7-95.6 787-2) MCH (test code = 29.3 pg 26.1-32.7 785-6) MCHC (test code = 33.6 g/dL 31.2-35.0 786-4) RDW-SD (test code = 41.7 fL 38.5-51.6 44065-8) RDW-CV (test code = 13.2 % 12.1-15.4 788-0) PLT (test code = See_Comment [Automated 777-3) message] The sy stem which generated this result transmitted reference range : 150 - 328 10*3/ ?L. The reference r anastasiia was not used to interpret this result as normal/abnormal . MPV (test code = 9.5 fL 9.8-13.0 L 16539-2) NRBC/100 WBC (test See_Comment [Automat ed code = 7859815135) message] The system which generated this result transmitted reference range : 0.0 - 10.0 /100 WBCs. The refer ence range was not u sed to interpret th is result as normal/abnormal . NRBC x10^3 (test code See_Comment [Auto mated = 3603318695) message] The s ystem which generated this result transmitted reference range : 10*3/?L. The reference range was not used to interpret this result as normal/abnormal . GRAN MAT (NEUT) % 59.7 % (test code = 770-8) IMM GRAN % (test code 0.50 % = 8053421977) LYMPH % (test code = 28.3 % 736-9) MONO % (test code = 8.0 % 5905-5) EOS % (test code = 3.0 % 713-8) BASO % (test code = 0.5 % 706-2) GRAN MAT x10^3(ANC) 8.17 10*3/uL 1.99-6.95 H (test code = 2046459092) IMM GRAN x10^3 (test 0.07 10*3/uL 0.00-0.06 H code = 9823235555) LYMPH x10^3 (test code 3.88 10*3/uL 1.09-3.23 H = 731-0) MONO x10^3 (test code 1.09 10*3/uL 0.36-1.02 H = 742-7) EOS x10^3 (test code = 0.41 10*3/uL 0.06-0.53 711-2) BASO x10^3 (test code 0.07 10*3/uL 0.01-0.09 = 704-7) Lab Interpretation Abnormal (test code = 55222-3) [facility]. METABOLIC PANEL ([id number])2022-01-14 05:16:50 Test Item Value Reference Range Interpretation Comments NA (test code = 139 mmol/L 135-145 7699630240) K (test code = 5.0 mmol/L 3.5-5.0 7179316068) CL (test code = 102 mmol/L 98-108 1154987832) CO2 TOTAL (test code 28 mmol/L 23-31 = 8374265409) AGAP (test code = 2-16 6221516037) BUN (test code = 12 mg/dL 7-23 1396642813) GLUCOSE (test code = 97 mg/dL 70-110 2678098974) CREATININE (test code 1.20 mg/dL 0.60-1.25 = 4358581336) TOTAL BILI (test code 0.3 mg/dL 0.1-1.1 = 7587368173) CALCIUM (test code = 9.0 mg/dL 8.6-10.6 9659021438) T PROTEIN (test code 7.2 g/dL 6.3-8.2 = 8260702305) ALBUMIN (test code = 4.4 g/dL 3.5-5.0 2397457803) ALK PHOS (test code = 97 U/L 34-122 8804974263) ALTv (test code = 19 U/L 5-50 1742-6) AST(SGOT) (test code 20 U/L 13-40 = 3397716764) eGFR (test code = mL/min/1.73m2 3952951395) KENYETTA (test code = KENYETTA) Association of Glomerular Filtration Rate (GFR) and Staging of Kidney Disease* + + +- +| GFR (mL/min/1.73 m2) ?| With Kidney Damage ?| ?Without Kidney Damage+ ------+ ----+ ------+| ?>90 ?| ?Stage one ?| ? Normal ?+ -+ + -+| ?60-89 ?| ?Stage two ?| ? Decreased GFR ? + + +- +| ?30-59 ?| ?Stage three ?| ? Stage three ? + + +- +| ?15-29 ?| ?Stage four ? | ? Stage four ?+ -+ + -+| ?<15 (or dialysis) ? ?| ?Stage five ? | ? Stage five ?+ -+ + -+ *Each stage assumes the associated GFR level has been in effect for at least three months. ?Stages 1 to 5, with or without kidney disease, indicate chronic kidney disease. Notes: Determination of stages one and two (with eGFR >59mL/min/1.73 m2) requires estimation of kidney damage for at least three months as defined by structural or functional abnormalities of the kidney, manifested by either:Pathological abnormalities or Markers of kidney damage (including abnormalities in the composition of the blood or urine or abnormalities in imaging tests). [facility] WITH [id number] 04:02:23 Test Item Value Reference Range Interpretation Comments WBC (test code = See_Comment H [Automated 8590-2) message] The sy stem which generated this result transmitted reference range : 4.20 - 10.70 10*3/?L. The reference range was not used to interpret this result as normal/abnormal . RBC (test code = See_Comment [Automated 789-8) message] The sy stem which generated this result transmitted reference range : 4.26 - 5.52 10*6/?L. The reference range was not used to interpret this result as normal/abnormal . HGB (test code = 15.4 g/dL 12.2-16.4 718-7) HCT (test code = 45.0 % 38.4-49.3 4544-3) MCV (test code = 86.5 fL 81.7-95.6 787-2) MCH (test code = 29.6 pg 26.1-32.7 785-6) MCHC (test code = 34.2 g/dL 31.2-35.0 786-4) RDW-SD (test code = 40.9 fL 38.5-51.6 65331-1) RDW-CV (test code = 13.0 % 12.1-15.4 788-0) PLT (test code = See_Comment [Automated 777-3) message] The sy stem which generated this result transmitted reference range : 150 - 328 10*3/ ?L. The reference r anastasiia was not used to interpret this result as normal/abnormal . MPV (test code = 9.2 fL 9.8-13.0 L 67681-6) NRBC/100 WBC (test See_Comment [Automat ed code = 3765321398) message] The system which generated this result transmitted reference range : 0.0 - 10.0 /100 WBCs. The refer ence range was not u sed to interpret th is result as normal/abnormal . NRBC x10^3 (test code <0.01 See_Comment [Auto mated = 7656832355) message] The s ystem which generated this result transmitted reference range : 10*3/?L. The reference range was not used to interpret this result as normal/abnormal . GRAN MAT (NEUT) % 68.6 % (test code = 770-8) IMM GRAN % (test code 0.50 % = 0648047814) LYMPH % (test code = 20.3 % 736-9) MONO % (test code = 8.1 % 5905-5) EOS % (test code = 2.0 % 713-8) BASO % (test code = 0.5 % 706-2) GRAN MAT x10^3(ANC) 9.98 10*3/uL 1.99-6.95 H (test code = 2724024564) IMM GRAN x10^3 (test 0.07 10*3/uL 0.00-0.06 H code = 5854886715) LYMPH x10^3 (test code 2.95 10*3/uL 1.09-3.23 = 731-0) MONO x10^3 (test code 1.18 10*3/uL 0.36-1.02 H = 742-7) EOS x10^3 (test code = 0.29 10*3/uL 0.06-0.53 711-2) BASO x10^3 (test code 0.07 10*3/uL 0.01-0.09 = 704-7) Lab Interpretation Abnormal (test code = 29733-1) [facility]"
[2023-03-12 17:07] LABS: SARS-CoV-2 Antigen Rapid Res Negative (Negative)
--- NOTE | 2023-03-12 17:15 | RAD REPORT ---
EXAM DESCRIPTION: Renetta Single View03/12/2023 4:59 pm CLINICAL HISTORY: cough COMPARISON: 2019 FINDINGS: The lungs appear clear of acute infiltrate. The heart is normal size IMPRESSION: No acute abnormalities displayed
--- NOTE | 2023-03-12 17:20 | EDPHYS ---
Physician Documentation [facility] Name: Rui Gautam Age: 27 yrs Sex: Male : 1995 Arrival Date: 03/12/2023 Time: 15:35 Bed IW1 Private MD: ED Physician Luis Fernando Mendoza HPI: 03/12 16:40 This 27 yrs old Male presents to ER via Ambulatory with complaints of Shortness Of jh7 Breath, Fever, Cough. 16:40 The patient has shortness of breath with light activity. Onset: The symptoms/episode jh7 began/occurred 3 week(s) ago. Associated signs and symptoms: Pertinent positives: non-productive cough, fever, Pertinent negatives: chest pain, vomiting. Patient reports that 3 weeks ago he developed a cough, shortness of breath, and high fever. Reports that fever has somewhat gone away but he is still experiencing a hacking cough. No medical problems.. Historical: - Allergies: 16:36 No Known Allergies; cm10 - Home Meds: 16:36 None [Active]; cm10 - PMHx: 16:36 None; cm10 - PSHx: 16:36 None; cm10 - Immunization history:: Adult Immunizations unknown. - Social history:: Smoking status: Patient/guardian denies using tobacco, Stopped _ months ago 1. ROS: 16:40 Constitutional: Negative for fever, chills, and weight loss, Eyes: Negative for injury, jh7 pain, redness, and discharge, Neck: Negative for injury, pain, and swelling, Cardiovascular: Negative for chest pain, palpitations, and edema, Abdomen/GI: Negative for abdominal pain, nausea, vomiting, diarrhea, and constipation, Skin: Negative for injury, rash, and discoloration, Neuro: Negative for headache, weakness, numbness, tingling, and seizure. 16:40 Respiratory: Positive for cough, shortness of breath, Negative for wheezing. 16:40 All other systems are negative. Exam: 16:40 Constitutional: This is a well developed, well nourished patient who is awake, alert, jh7 and in no acute distress. 16:40 Eyes: Pupils equal round and reactive to light, extra-ocular motions intact. Lids and lashes normal. Conjunctiva and sclera are non-icteric and not injected. Cornea within normal limits. Periorbital areas with no swelling, redness, or edema. ENT: Nares patent. No nasal discharge, no septal abnormalities noted. Tympanic membranes are normal and external auditory canals are clear. Oropharynx with no redness, swelling, or masses, exudates, or evidence of obstruction, uvula midline. Mucous membranes moist. Cardiovascular: Regular rate and rhythm with a normal S1 and S2. No gallops, murmurs, or rubs. Normal PMI, no JVD. No pulse deficits. Abdomen/GI: Soft, non-tender, with normal bowel sounds. No distension or tympany. No guarding or rebound. No evidence of tenderness throughout. Back: No spinal tenderness. No costovertebral tenderness. Full range of motion. Skin: Warm, dry with normal turgor. Normal color with no rashes, no lesions, and no evidence of cellulitis. MS/ Extremity: Pulses equal, no cyanosis. Neurovascular intact. Full, normal range of motion. Neuro: Awake and alert, GCS 15, oriented to person, place, time, and situation. Motor strength 5/5 in all extremities. Sensory grossly intact. Normal gait. 16:40 Respiratory: the patient does not display signs of respiratory distress, Respirations: normal, Breath sounds: are clear throughout, Hacking cough noted upon exam. Vital Signs: 16:35 BP 131 / 77; Pulse 72; Resp 18 S; Temp 98.6(O); Pulse Ox 98% on R/A; Weight 136.08 kg; cm10 Height 6 ft. 0 in. ; Pain 7/10; 16:35 Body Mass Index 40.69 (136.08 kg, 182.88 cm) cm10 16:35 Pain Scale: Adult cm10 MDM: 15:38 Patient medically screened. [facility] 17:20 Differential diagnosis: asthma, Bronchitis pneumonia, URI. Antibiotic administration: [facility] Not indicated. Data interpreted: Pulse oximetry: is 98 %. Interpretation: normal. The patient's pulmonary embolism risk score was calculated as follows: No Risks (0 Pts). Data reviewed: vital signs, nurses notes, radiologic studies, plain films. Independent interpretation of the following test(s) in the Emergency Department X-Ray: My interpretation is no pneumonia. Counseling: I had a detailed discussion with the patient and/or guardian regarding: the historical points, exam findings, and any diagnostic results supporting the discharge/admit diagnosis, to return to the emergency department if symptoms worsen or persist or if there are any questions or concerns that arise at home. 03/12 15:46 Order name: SARS RAPID; Complete Time: 17:09 [facility] 03/12 15:46 Order name: Flu; Complete Time: 17:09 [facility] 03/12 15:46 Order name: XRAY Chest (1 view); Complete Time: 17:18 jh7 Administered Medications: 17:19 Not Given (Physician Discretion): Albuterol Inhalation 2.5 mg Inhalation every 20 jh7 minutes x3 Disposition: 20:00 Co-signature as Attending Physician, Luis Fernando Mendoza DO I was immediately available on-site ms3 in the Emergency Department for consultation in the care of the patient. Disposition Summary: 03/12/23 17:20 Discharge Ordered Location: Home [facility] Problem: new [facility] Symptoms: are unchanged [facility] Condition: Stable [facility] Diagnosis - Acute bronchitis, unspecified [facility] Followup: [facility] - With: Private Physician - When: 2 - 3 days - Reason: Recheck today's complaints Discharge Instructions: - Discharge Summary Sheet [facility] - Acute Bronchitis, Adult [facility] - Viral Respiratory Infection [facility] Forms: - Work release form ss - Medication Reconciliation Form [facility] - Thank You Letter [facility] - Patient Portal Instructions [facility] Prescriptions: - ProAir RespiClick 90 mcg/actuation Inhalation Aerosol Powder, Breath Activated - administer 1 inhalation by INHALATION route every 4 to 6 hours As needed as [facility] needed for shortness of breath or wheezing; 1 Each; Refills: 0, Product Selection Permitted - Tessalon Perles 100 mg Oral Capsule - take 1 capsule by ORAL route every 8 hours As needed; 15 capsule; Refills: 0, 7 Product Selection Permitted - Medrol (Amandeep) 4 mg Oral Tablets, Dose Pack - take 1 tablet by ORAL route as directed - follow package instructions; 1 [facility] packet; Refills: 0, Product Selection Permitted Signatures: Dispatcher [employer] Luis Fernando Khanna DO DO ms3 Cynthia Gavin, ICE GRINDER ICE GRINDER 7 Bee Allen, RN RN cm10
--- NOTE | 2023-03-12 17:20 | ER ---
Nurse's Notes [facility] Name: Rui Gautam Age: 27 yrs Sex: Male : 1995 Arrival Date: 03/12/2023 Time: 15:35 Bed IW1 Private MD: Diagnosis: Acute bronchitis, unspecified Presentation: 03/12 16:35 Chief complaint: Patient states: cough, shortness of breath and fever X3 weeks. cm10 Respirations even and unlabored in triage. Coronavirus screen: Vaccine status: Patient reports being unvaccinated. Client denies travel out of the [place] in the last 14 days. Ebola Screen: Patient denies travel to an Ebola-affected area in the 21 days before illness onset. No symptoms or risks identified at this time. Initial Sepsis Screen: Does the patient meet any 2 criteria? No. Patient's initial sepsis screen is negative. Does the patient have a suspected source of infection? No. Patient's initial sepsis screen is negative. Risk Assessment: Do you want to hurt yourself or someone else? Patient reports no desire to harm self or others. Onset of symptoms was March 12, 2023. 16:35 Method Of Arrival: Ambulatory cm10 16:35 Acuity: LARRY 3 cm10 Historical: - Allergies: 16:36 No Known Allergies; cm10 - Home Meds: 16:36 None [Active]; cm10 - PMHx: 16:36 None; cm10 - PSHx: 16:36 None; cm10 - Immunization history:: Adult Immunizations unknown. - Social history:: Smoking status: Patient/guardian denies using tobacco, Stopped _ months ago 1. Screenin:34 [facility] ED Fall Risk Assessment (Adult) History of falling in the last 3 months, ss including since admission No falls in past 3 months (0 pts). Abuse screen: Denies threats or abuse. Denies injuries from another. Nutritional screening: No deficits noted. Tuberculosis screening: Never had TB. Assessment: 17:34 General: Appears in no apparent distress. comfortable, Behavior is calm, cooperative. ss Neuro: Level of Consciousness is awake, alert, obeys commands, Oriented to person, place, time, situation. Respiratory: Airway is patent Respiratory effort is even, unlabored. Derm: Skin is intact, is healthy with good turgor, Skin is pink, warm \T\ dry. normal. Vital Signs: 16:35 BP 131 / 77; Pulse 72; Resp 18 S; Temp 98.6(O); Pulse Ox 98% on R/A; Weight 136.08 kg; cm10 Height 6 ft. 0 in. ; Pain 7/10; 16:35 Body Mass Index 40.69 (136.08 kg, 182.88 cm) cm10 16:35 Pain Scale: Adult cm10 ED Course: 15:38 Patient arrived in ED. rg4 15:38 [facility] jh7 15:38 Luis Fernando Mendoza DO is Attending Physician. jh7 16:36 Triage completed. cm10 16:37 Arm band placed on Patient placed in an exam room, on a stretcher. cm10 16:40 Flu Sent. cm10 16:40 SARS RAPID Sent. cm10 17:01 XRAY Chest (1 view) In Process Unspecified. EDMS 17:34 Patient has correct armband on for positive identification. ss 17:34 No provider procedures requiring assistance completed. Patient did not have IV access ss during this emergency room visit. Administered Medications: 17:19 Not Given (Physician Discretion): Albuterol Inhalation 2.5 mg Inhalation every 20 jh7 minutes x3 Medication: 17:34 VIS not applicable for this client. ss Outcome: 17:20 Discharge ordered by . [facility] 17:34 Discharged to home ambulatory. ss 17:34 Condition: good 17:34 Discharge instructions given to patient, Instructed on discharge instructions, follow up and referral plans. medication usage, Demonstrated understanding of instructions, follow-up care, medications, Prescriptions given X 3. 17:35 Patient left the ED. ss Signatures: Dispatcher [employer] EDMS Maria D Huang, RN RN Garima Chandra rg4 Cynthia Gavin FNP MANAGER PRIVACY Bee Capone, BENNY RN 10
[2023-03-12 18:08] VITALS: BP 131/77; TEMP 98.6; O2SAT 98
== END 2023-03-12 17:35 | disposition home or self-care (01) ==
LOC: ER 15:35
DX: J20.9 Acute bronchitis, unspecified (principal); Z20.822 Contact with and (suspected) exposure to COVID-19
CPT/HCPCS: 36415; 71045; 87804; 87811; 99283

== ENCOUNTER 2023-07-11 23:20 | Emergency (ER) | payer SELFPAY ==
--- OUTSIDE RECORDS SUMMARY | 2023-07-11 23:25 | XMS REPORT | Continuity of Care Document ---
Author Name Unknown Address [address] [facility] [place] [address] [facility]ions hospital[facility] Address [address] [facility] [address] [place] [address] Care Team Providers Care Putty Mixer Name Role Phone Dixie Jorge MD Primary Care Physician TED WOMACK Attending Clinician Unavailable Ted Womack DO Attending Clinician [phone] CHRISTOPHER ROBLEDO Attending Clinician Unavailable Osmar Mathews MD Attending Clinician [phone] Eduardo Lui MD Attending Clinician [phone] Christopher Robledo MD Attending Clinician [phone] Marquita Smith MD Attending Clinician [phone] REBECCA JAIMES Attending Clinician Unavaila Rebecca Nur Attending Clinician MAXIMO PIZARRO Attending Clinician Unavailable Maxiom Hernandez Attending Clinician [phone] DIXIE JORGE Attending Clinician Dixie Roman MD Attending Clinician [phone]- [phone] Ariel Santillan Attending Clinician [phone] ARIEL PATEL Attending Clinician Unavailable SHERRY GARCIA Attending Clinician UnavailEDUARDO Reyna Admitting Clinician Unavailable Eduardo Lui MD Admitting Clinician [phone] REBECCA JAIMES Admitting Clinician Unavaila ble Payers Payer Name Policy Type Policy Number Effective Date Expirati on Date Source [facility] [id number] 2019 00:00:00 Problems Condition Name Condition Details Condition Category Status Onset Date Resolution Date Last Treatment Date Treating Clinician Comments Source Gluteal abscess Gluteal abscess Disease Active 2021-08 00:00: 00 [facility] Morbid obesity with body mass index of 40.0-49.9 Morbid obesity with body mass index of 40.0-49.9 Disease Active 2021-08 00:00: 00 [facility] Tear of lateral cartilage or meniscus of knee, current Tear of lateral cartilage or meniscus of knee, current Disease Active 08-20 00:00: 00 [facility] Tear of lateral cartilage or meniscus of knee, current Tear of lateral cartilage or meniscus of knee, current Disease Active 08-20 00:00: 00 [facility] Allergies, Adverse Reactions, Alerts Allergy Name Allergy Type Status Severity Reaction(s) Onset Date Inactive Date Treating Clinician Comments Source NO KNOWN ALLERGIE S Drug Class Active [facility] Social History Social Habit Start Date Stop Date Quantity Comments Source History SDOH Social Connections Get Together [facility] History SDOH Social Connections [facility] History SDOH Social Connections Membership [facility] History SDOH Social Connections Meetings [facility] History of tobacco use Cigarette Smoker [facility] Alcohol intake 2022-07-26 00:00:00 2022-07-26 00:00:00 1.71 /d [facility] History SDOH Alcohol Frequency 2022-07-25 00:00:00 2022-07-25 00:00:[address] [facility] History SDOH Alcohol Std Drinks 2022-07-25 00:00:00 2022-07-25 00:00:[address] [facility] History SDOH Alcohol Binge 2022-07-25 00:00:00 2022-07-25 00:00:[address] [facility] History SDOH Social Connections Phone 2022-07-25 00:00:00 2022-07-25 00:00:[address] [facility] History SDOH Social Connections Living 2022-07-25 00:00:00 2022-07-25 00:00:[address] [facility] History SDOH Physical Activity DPW 2022-07-25 00:00:00 2022-07-25 00:00:[address] [facility] History SDOH Physical Activity MPS 2022-07-25 00:00:00 2022-07-25 00:00:[address] [facility] History SDOH Financial 2022-07-25 00:00:00 2022-07-25 00:00:[address] [facility] History SDOH Food Worry 2022-07-25 00:00:00 2022-07-25 00:00:[address] [facility] History SDOH Food Scarcity 2022-07-25 00:00:00 2022-07-25 00:00:[address] [facility] History SDOH Transport Med 2022-07-25 00:00:00 2022-07-25 00:00:[address] [facility] History SDOH Transport Non-Med 2022-07-25 00:00:00 2022-07-25 00:00:[address] [facility] Cigarettes smoked current (pack per day) - Reported 2022-07-25 00:00:00 2022-07-25 00:00:00 [facility] Tobacco use and exposure 2022-07-25 00:00:00 2022-07-25 00:00:00 Smokeless tobacco non-user [facility] Exposure to SARS-CoV-2 (event) 2022-07-14 00:00:00 2022-07-24 19:09:[address] [facility] Tobacco Comment 2022-07-24 00:00:00 2022-07-24 00:00:[address] [facility] Sex Assigned At 1995 00:00:00 1995 00:00:00 [facility] Smoking Status Start Date Stop Date Source Smokes tobacco daily 2022-07-25 00:00:00 [facility] Medications Ordered Medication Name Filled Medication Name Start Date Stop Date Current Medication? Ordering Clinician Indication Dosage Frequency Signature (SIG) Comments Components Source clindamycin 150 mg capsule 1 00:00: 00 09-14 05:59 :00 No [id number] 300mg Take 2 capsules by mouth 4 (four) times daily for 14 days. [facility] amoxicillin -clavulanat e (AUGMENTIN) 875-125 mg per tablet 1 tablet 2021-08 20:15: 00 08-05 13:59 :00 No 1{tbl} 1 tablet, Oral, Q12H, 20 doses, First dose on Sun07/26/22 at 1415, Last dose on Sun08/04/22 at 2000, Routine
Reason for Anti-Infec tive: Documented Infection< br>Documen pete Infection Site: Wound
D uration of Therapy: 10 days [facility] traMADoL (ULTRAM) tablet 50 mg 2021-08 13:00: 00 07-27 04:59 :00 No 50mg 50 mg, Oral, Q6HPRN, Starting on Sun07/26/22 at 0700, Until Sun07/26/22 at 2259, Routine, Pain (scale 4-6) [facility] traMADoL (ULTRAM) tablet 50 mg 2021-08 13:00: 00 07-27 04:59 :00 No 50mg 50 mg, Oral, Q6HPRN, Starting on Sun07/26/22 at 0700, Until Sun07/26/22 at 2259, Routine, Pain (scale 4-6) [facility] nicotine (NICODERM) 14 mg/24 hr patch 1 Patch 2021-08 04:30: 00 Yes 1{patch } 1 Patch, Topical, Administer over 24 Hours, Q24H, First dose on Sun07/25/22 at 2230, Until Discontinu ed, Routine [facility] nicotine (NICODERM) 14 mg/24 hr patch 1 Patch 2021-08 04:30: 00 Yes 1{patch } 1 Patch, Topical, Administer over 24 Hours, Q24H, First dose on Sun07/25/22 at 2230, Until Discontinu ed, Routine [facility] morpHINE (4 mg/mL) injection 4 mg 2021-08 02:13: 22 07-27 02:12 :22 No 4mg 4 mg, Slow IV Push, Q4HPRN, Starting on Sun07/25/22 at 2012, Until Sun07/26/22 at 2011, Routine, Pain (scale 7-10) [facility] morpHINE (4 mg/mL) injection 4 mg 2021-08 02:13: 22 07-27 02:12 :22 No 4mg 4 mg, Slow IV Push, Q4HPRN, Starting on Sun07/25/22 at 2012, Until Sun07/26/22 at 2011, Routine, Pain (scale 7-10) [facility] sulfamethox azole-trime thoprim (BACTRIM DS) 800-160 mg per tablet 2021-08 00:00: 00 08-06 05:59 :00 No [id number] 1{tbl} Take 1 tablet by mouth in the morning and 1 tablet in the evening. Do all this for 10 days. [facility] traMADoL 50 mg tablet 2021-08 00:00: 00 08-03 05:59 :00 No [id number] 50mg Take 1 tablet by mouth every 8 (eight) hours as needed for Pain (scale 4-6) for up to 7 days. Indication s: acute pain [facility] sodium chloride 0.9 % irrigation solution 2021-08 17:43: 00 07-25 18:07 :02 No PRN, Starting on Sun07/25/22 at 1143, Until Sun07/25/22 at 1207, Intra-op [facility] enoxaparin (LOVENOX) injection 40 mg 2021-08 15:00: 00 Yes 40mg 40 mg, Subcutaneo us, DAILY, First dose on Sun07/25/22 at 0900, Until Discontinu ed, Routine [facility] enoxaparin (LOVENOX) injection 40 mg 2021-08 15:00: 00 Yes 40mg 40 mg, Subcutaneo us, DAILY, First dose on Sun07/25/22 at 0900, Until Discontinu ed, Routine [facility] piperacilli n-tazobacta m (ZOSYN) 3.375 g in NaCl 0.9% (NS) 50 mL MINI-BAG 2021-08 11:00: 00 07-25 18:00 :53 No 3.375g 3.375 g, IV Piggyback, Q8H ABX, 7 doses, First dose (after last reorder) on Sun07/25/22 at 0500, Last dose on Sun07/27/22 at 0500, Administer over 240 Minutes, 50 mL
Reas on for Anti-Infec tive: Documented Infection< br>Documen pete Infection Site: Skin / Soft Tissue
Duration of Therapy: Other (see Comments) [facility] piperacilli n-tazobacta m (ZOSYN) 3.375 g in NaCl 0.9% (NS) 50 mL MINI-BAG 2021-08 11:00: 00 07-25 18:00 :53 No 3.375g 3.375 g, IV Piggyback, Q8H ABX, 7 doses, First dose (after last reorder) on Sun07/25/22 at 0500, Last dose on Sun07/27/22 at 0500, Administer over 240 Minutes, 50 mL
Reas on for Anti-Infec tive: Documented Infection< br>Documen pete Infection Site: Skin / Soft Tissue
Duration of Therapy: Other (see Comments) [facility] ondansetron (ZOFRAN (PF)) injection 4 mg 2021-08 05:40: 41 Yes 4mg 4 mg, Slow IV Push, Q6HPRN, Starting on Sun07/24/22 at 2340, Until Discontinu ed, Routine, Nausea and Vomiting (N/V) [facility] ondansetron (ZOFRAN (PF)) injection 4 mg 2021-08 05:40: 41 Yes 4mg 4 mg, Slow IV Push, Q6HPRN, Starting on Sun07/24/22 at 2340, Until Discontinu ed, Routine, Nausea and Vomiting (N/V) [facility] morpHINE (4 mg/mL) injection 4 mg 2021-08 05:40: 27 07-26 02:13 :14 No 4mg 4 mg, Slow IV Push, Q4HPRN, Starting on Sun07/24/22 at 2340, Until Sun07/25/22 at 2013, Routine, Pain (scale 7-10) [facility] morpHINE (4 mg/mL) injection 4 mg 2021-08 05:40: 27 07-26 02:13 :14 No 4mg 4 mg, Slow IV Push, Q4HPRN, Starting on Sun07/24/22 at 2340, Until Sun07/25/22 at 2013, Routine, Pain (scale 7-10) [facility] traMADoL (ULTRAM) tablet 50 mg 2021-08 05:40: 24 07-26 12:54 :36 No 50mg 50 mg, Oral, Q8HPRN, Starting on Sun07/24/22 at 2340, Until Sun07/26/22 at 0654, Routine, Pain (scale 4-6) [facility] traMADoL (ULTRAM) tablet 50 mg 2021-08 05:40: 24 07-26 12:54 :36 No 50mg 50 mg, Oral, Q8HPRN, Starting on Sun07/24/22 at 2340, Until Sun07/26/22 at 0654, Routine, Pain (scale 4-6) [facility] acetaminoph en (TYLENOL) tablet 650 mg 2021-08 05:40: 19 Yes 650mg 650 mg, Oral, Q6HPRN, Starting on Sun07/24/22 at 2340, Until Discontinu ed, Routine, Pain (scale 1-3) [facility] acetaminoph en (TYLENOL) tablet 650 mg 2021-08 05:40: 19 Yes 650mg 650 mg, Oral, Q6HPRN, Starting on Sun07/24/22 at 2340, Until Discontinu ed, Routine, Pain (scale 1-3) [facility] ketorolac (TORADOL) injection 30 mg 2021-08 04:30: 00 07-25 03:41 :00 No 30mg 30 mg, Slow IV Push, ONCE, 1 dose, On Sun07/24/22 at 2230, [facility] ketorolac (TORADOL) injection 30 mg 2021-08 04:30: 00 07-25 03:41 :00 No 30mg 30 mg, Slow IV Push, ONCE, 1 dose, On Sun07/24/22 at 2230, [facility] piperacilli n-tazobacta m (ZOSYN) 3.375 g in NaCl 0.9% (NS) 100 mL MINI-BAG 2021-08 03:45: 00 07-25 04:40 :00 No 3.375g 3.375 g, IV Piggyback, ONCE, 1 dose, On Sun07/24/22 at 2145, Administer over 30 Minutes, 100 mL
Reas on for Anti-Infec tive: Documented Infection< br>Documen ptee Infection Site: Skin / Soft Tissue
Duration of Therapy: Other (see Comments) [facility] morpHINE (4 mg/mL) injection 4 mg 2021-08 03:45: 00 07-25 03:37 :00 No 4mg 4 mg, Slow IV Push, ONCE, 1 dose, On Sun07/24/22 at 2145, STAT [facility] lidocaine-p rilocaine (EMLA) 2.5-2.5 % cream 2.5 g 2021-08 03:45: 00 07-25 03:39 :00 No 2.5g Topical, ONCE, 1 dose, On Sun07/24/22 at 2145, [facility] iopamidol (ISOVUE 370-500 mL) injection 76 mL 2021-08 03:45: 00 07-25 03:45 :00 No [id number] 76mL 76 mL, Intravenou s, ONCE, 1 dose, On Sun07/24/22 at 2145, Routine [facility] piperacilli n-tazobacta m (ZOSYN) 3.375 g in NaCl 0.9% (NS) 100 mL MINI-BAG 2021-08 03:45: 00 07-25 04:40 :00 No 3.375g 3.375 g, IV Piggyback, ONCE, 1 dose, On Sun07/24/22 at 2145, Administer over 30 Minutes, 100 mL
Reas on for Anti-Infec tive: Documented Infection< br>Documen pete Infection Site: Skin / Soft Tissue
Duration of Therapy: Other (see Comments) [facility] morpHINE (4 mg/mL) injection 4 mg 2021-08 03:45: 00 07-25 03:37 :00 No 4mg 4 mg, Slow IV Push, ONCE, 1 dose, On Sun07/24/22 at 2145, STAT [facility] lidocaine-p rilocaine (EMLA) 2.5-2.5 % cream 2.5 g 2021-08 03:45: 00 07-25 03:39 :00 No 2.5g Topical, ONCE, 1 dose, On Sun07/24/22 at 2145, [facility] iopamidol (ISOVUE 370-500 mL) injection 76 mL 2021-08 03:45: 00 07-25 03:45 :00 No [id number] 76mL 76 mL, Intravenou s, ONCE, 1 dose, On Sun07/24/22 at 2145, Routine [facility] ondansetron (ZOFRAN (PF)) injection 4 mg 2021-08 02:45: 00 07-25 02:15 :00 No 4mg 4 mg, Slow IV Push, ONCE, 1 dose, On Sun07/24/22 at 2045, [facility] FENTanyl PF (SUBLIMAZE (PF)) injection 75 mcg 2021-08 02:45: 00 07-25 02:16 :00 No 75ug 75 mcg, Slow IV Push, ONCE, 1 dose, On Sun07/24/22 at 2045, STAT [facility] ondansetron (ZOFRAN (PF)) injection 4 mg 2021-08 02:45: 00 07-25 02:15 :00 No 4mg 4 mg, Slow IV Push, ONCE, 1 dose, On Sun07/24/22 at 2045, [facility] FENTanyl PF (SUBLIMAZE (PF)) injection 75 mcg 2021-08 02:45: 00 07-25 02:16 :00 No 75ug 75 mcg, Slow IV Push, ONCE, 1 dose, On Sun07/24/22 at 2045, STAT [facility] ceFAZolin (ANCEF) 1 g in NaCl 0.9% (NS) 50 mL MINI-BAG 01-14 07:45: 00 01-14 07:36 :00 No 1g 1 g, IV Piggyback, ONCE, 1 dose, On 01/14/22 at 0245, Administer over 30 Minutes, 50 mL
Reas on for Anti-Infec tive: Documented Infection< br>Documen pete Infection Site: Skin / Soft Tissue
Duration of Therapy: 7 days [facility] metroNIDAZO LE (FLAGYL) tablet 500 mg 01-14 07:30: 00 01-14 06:43 :00 No 500mg 500 mg, Oral, ONCE, 1 dose, On 01/14/22 at 0230, [facility]
Re ason for Anti-Infec tive: Documented Infection< br>Documen pete Infection Site: Skin / Soft Tissue
Duration of Therapy: 7 days [facility] morpHINE (4 mg/mL) injection 4 mg 01-14 07:00: 00 01-14 05:55 :00 No 4mg 4 mg, Slow IV Push, ONCE, 1 dose, On Sun01/14/22 at 0200, STAT [facility] iohexoL (OMNIPAQUE 350 BULK-50 mL) injection 50 mL 01-14 04:30: 00 01-14 04:09 :00 No [id number] 50mL 50 mL, Intravenou s, ONCE, 1 dose, On Sun01/13/22 at 2330, Routine [facility] ondansetron (ZOFRAN (PF)) injection 4 mg 01-14 04:00: 00 01-14 03:57 :00 No 4mg 4 mg, Slow IV Push, ONCE, 1 dose, On Sun01/13/22 at 2300, [facility] morpHINE (4 mg/mL) injection 4 mg 01-14 04:00: 00 01-14 03:57 :00 No 4mg 4 mg, Slow IV Push, ONCE, 1 dose, On Sun01/13/22 at 2300, STAT [facility] NaCl 0.9% (NS) bolus infusion 1,000 mL 01-14 04:00: 00 01-14 05:39 :00 No 1000mL at 999 mL/hr, 1,000 mL, IV Infusion, ONCE, 1 dose, On Sun01/13/22 at 2300, [facility] cephALEXin 500 mg tablet 01-14 00:00: 00 01-22 04:59 :00 No [id number] 500mg Take 1 tablet by mouth 4 (four) times daily for 7 days. [facility] metroNIDAZO LE 500 mg tablet 01-14 00:00: 00 01-22 04:59 :00 No [id number] 500mg Take 1 tablet by mouth 2 (two) times daily for 7 days. [facility] ketorolac (TORADOL) injection 30 mg 01-12 06:00: 00 01-12 05:01 :00 No 30mg 30 mg, Intramuscu lar, ONCE, 1 dose, On Cleo 01/12/22 at 0100, [facility] HYDROcodone -acetaminop hen (NORCO) 10-325 mg tablet 1 tablet 01-12 06:00: 00 01-12 05:02 :00 No 1{tbl} 1 tablet, Oral, ONCE NOW, 1 dose, On Cleo 01/12/22 at 0100, Routine [facility] doxycycline hyclate (Vibramycin ) capsule 100 mg 01-12 06:00: 00 01-12 05:01 :00 No 100mg 100 mg, Oral, ONCE, 1 dose, On Cleo 01/12/22 at 0100, [facility]
Re ason for Anti-Infec tive: Documented Infection< br>Documen pete Infection Site: Skin / Soft Tissue
Duration of Therapy: Other (see Comments) [facility] doxycycline hyclate 100 mg capsule 01-12 00:00: 00 Yes [id number] 100mg Take 1 capsule by mouth 2 (two) times daily. [facility] doxycycline hyclate 100 mg capsule 01-12 00:00: 00 Yes [id number] 100mg Take 1 capsule by mouth 2 (two) times daily. [facility] doxycycline hyclate 100 mg capsule 01-12 00:00: 00 07-24 00:00 :00 No [id number] 100mg Take 1 capsule by mouth 2 (two) times daily. [facility] doxycycline hyclate 100 mg capsule 01-12 00:00: 00 07-24 00:00 :00 No [id number] 100mg Take 1 capsule by mouth 2 (two) times daily. [facility] acetaminoph en-codeine 300-30 mg tablet 01-12 00:00: 00 01-20 04:59 :00 No [id number] 1{tbl} Take 1 tablet by mouth every 6 (six) hours as needed for Pain (scale 7-10) for up to 7 days. Indication s: acute pain [facility] acetaminoph en-codeine 300-30 mg tablet 01-12 00:00: 00 01-20 04:59 :00 No [id number] 1{tbl} Take 1 tablet by mouth every 6 (six) hours as needed for Pain (scale 7-10) for up to 7 days. Indication s: acute pain [facility] lisdexamfet amine (VYVANSE) 40 mg capsule 02-11 00:00: 00 Yes [id number] 40mg Take 1 capsule by mouth every morning. [facility] lisdexamfet amine (VYVANSE) 40 mg capsule 02-11 00:00: 00 Yes [id number] 40mg Take 1 capsule by mouth every morning. [facility] lisdexamfet amine (VYVANSE) 40 mg capsule 02-11 00:00: 00 Yes [id number] 40mg Take 1 capsule by mouth every morning. [facility] lisdexamfet amine (VYVANSE) 40 mg capsule 02-11 00:00: 00 07-24 00:00 :00 No [id number] 40mg Take 1 capsule by mouth every morning. [facility] lisdexamfet amine (VYVANSE) 40 mg capsule 02-11 00:00: 00 07-24 00:00 :00 No [id number] 40mg Take 1 capsule by mouth every morning. [facility] methylPREDN ISolone (MEDROL, HELADIO,) 4 mg tablets 02-04 00:00: 00 Yes [id number] 84mg Take 21 tablets by mouth SEE-INSTRU CTIONS. follow package directions [facility] methylPREDN ISolone (MEDROL, HELADIO,) 4 mg tablets 02-04 00:00: 00 Yes [id number] 84mg Take 21 tablets by mouth SEE-INSTRU CTIONS. follow package directions [facility] methylPREDN ISolone (MEDROL, HELADIO,) 4 mg tablets 02-04 00:00: 00 Yes [id number] 84mg Take 21 tablets by mouth SEE-INSTRU CTIONS. follow package directions [facility] methylPREDN ISolone (MEDROL, HELADIO,) 4 mg tablets 02-04 00:00: 00 02-11 00:00 :00 No [id number] 84mg Take 21 tablets by mouth SEE-INSTRU CTIONS. follow package directions [facility] lisdexamfet amine (VYVANSE) 30 mg capsule 6 00:00: 00 Yes [id number] 30mg Take 1 capsule by mouth every morning. [facility] lisdexamfet amine (VYVANSE) 30 mg capsule 6 00:00: 00 Yes [id number] 30mg Take 1 capsule by mouth every morning. [facility] lisdexamfet amine (VYVANSE) 30 mg capsule 6 00:00: 00 Yes [id number] 30mg Take 1 capsule by mouth every morning. [facility] lisdexamfet amine (VYVANSE) 30 mg capsule 6 00:00: 00 Yes [id number] 30mg Take 1 capsule by mouth every morning. [facility] lisdexamfet amine (VYVANSE) 30 mg capsule 610 00:00: 00 Yes [id number] 30mg Take 1 capsule by mouth every morning. [facility] lisdexamfet amine (VYVANSE) 30 mg capsule 6 00:00: 02-11 00:00 :00 No [id number] 30mg Take 1 capsule by mouth every morning. [facility] ondansetron (ZOFRAN ODT) 4 mg disintegrat ing tablet 02 00:00: 00 01-13 00:00 :00 No 4mg Take 1 tablet by mouth every 8 (eight) hours as needed for Nausea and Vomiting (N/V). [facility] ondansetron (ZOFRAN ODT) 4 mg disintegrat ing tablet 03-07 00:00: 01-13 00:00 :00 No 4mg Take 1 tablet by mouth every 8 (eight) hours as needed for Nausea and Vomiting (N/V). [facility] traMADOL (ULTRAM) 50 mg tablet 08-27 00:00: 01-13 00:00 :00 No 50mg Take 1 Tab by mouth every 6 (six) hours as needed for Pain (scale 4-6). Sharif Salas PA-C / Bucky Stroud MD LEONA# [id number] DPS# [id number] x Lic.# [id number] NPI# [id number] [facility] cyclobenzap rine (FLEXERIL) 5 mg tablet 08-27 00:00: 01-13 00:00 :00 No 5mg Take 1 Tab by mouth 3 (three) times daily. [facility] traMADOL (ULTRAM) 50 mg tablet 08-27 00:0001-13 00:00 :00 No 50mg Take 1 Tab by mouth every 6 (six) hours as needed for Pain (scale 4-6). Sharif Salas PA-C / Bucky Stroud MD LEONA# [id number] DPS# [id number] x Lic.# [id number] NPI# [id number] [facility] cyclobenzap rine (FLEXERIL) 5 mg tablet 08-27 00:00: 01-13 00:00 :00 No 5mg Take 1 Tab by mouth 3 (three) times daily. [facility] HYDROcodone -acetaminop hen (NORCO) 5-325 mg tablet 02-21 00:00: 01-13 00:00 :00 No 1{tbl} Take 1 Tab by mouth every 6 (six) hours as needed for Pain (scale 7-10). [facility] HYDROcodone -acetaminop hen (NORCO) 5-325 mg tablet 02-21 00:00: 01-13 00:00 :00 No 1{tbl} Take 1 Tab by mouth every 6 (six) hours as needed for Pain (scale 7-10). [facility] Vital Signs Vital Name Observation Time Observation Value Comments S lulú Systolic blood pressure 2022-08-30 20:11:00 157 mm[Hg] [facility] Diastolic blood pressure 2022-08-30 20:11:00 96 mm[Hg] [facility] Heart rate 2022-08-30 20:11:00 105 /min [facility] Body temperature 2022-08-30 20:11:[address] [facility] Oxygen saturation in Arterial blood by Pulse oximetry 2022-08-30 20:11:00 99 /min [facility] Respiratory rate 2022-08-30 18:16:00 18 /min [facility] Body weight 2022-08-30 18:16:00 136.079 kg [facility] BMI 2022-08-30 18:16:00 40.69 kg/m2 [facility] Systolic blood pressure 2022-07-26 17:40:00 137 mm[Hg] [facility] Diastolic blood pressure 2022-07-26 17:40:00 88 mm[Hg] [facility] Heart rate 2022-07-26 17:40:00 76 /min [facility] Body temperature 2022-07-26 17:40:[address] [facility] Respiratory rate 2022-07-26 17:40:00 18 /min [facility] Oxygen saturation in Arterial blood by Pulse oximetry 2022-07-26 17:40:00 97 /min [facility] Body weight 2022-07-26 09:26:00 148.961 kg [facility] BMI 2022-07-26 09:26:00 44.54 kg/m2 [facility] Body height 2022-07-25 04:57:00 182.9 cm [facility] Systolic blood pressure 2022-07-25 19:05:00 140 mm[Hg] [facility] Diastolic blood pressure 2022-07-25 19:05:00 81 mm[Hg] [facility] Heart rate 2022-07-25 19:05:00 79 /min [facility] Body temperature 2022-07-25 19:05:[address] [facility] Respiratory rate 2022-07-25 19:05:00 18 /min [facility] Oxygen saturation in Arterial blood by Pulse oximetry 2022-07-25 19:05:00 94 /min [facility] Body weight 2022-07-25 09:13:00 149.188 kg [facility] BMI 2022-07-25 09:13:00 44.54 kg/m2 [facility] Body height 2022-07-25 04:57:00 182.9 cm [facility] Systolic blood pressure 2022-01-14 03:50:00 140 mm[Hg] [facility] Diastolic blood pressure 2022-01-14 03:50:00 83 mm[Hg] [facility] Heart rate 2022-01-14 03:50:00 83 /min [facility] Respiratory rate 2022-01-14 03:50:00 18 /min [facility] Oxygen saturation in Arterial blood by Pulse oximetry 2022-01-14 03:50:00 98 /min [facility] Body temperature 2022-01-14 02:22:[address] [facility] Body height 2022-01-14 02:22:00 182.9 cm [facility] Body weight 2022-01-14 02:22:00 135.626 kg [facility] BMI 2022-01-14 02:22:00 40.55 kg/m2 [facility] Systolic blood pressure 2022-01-12 05:26:00 141 mm[Hg] [facility] Diastolic blood pressure 2022-01-12 05:26:00 82 mm[Hg] [facility] Heart rate 2022-01-12 05:26:00 78 /min [facility] Respiratory rate 2022-01-12 05:26:00 16 /min [facility] Oxygen saturation in Arterial blood by Pulse oximetry 2022-01-12 05:26:00 97 /min [facility] Body temperature 2022-01-12 04:38:[address] [facility] Body height 2022-01-12 04:38:00 182.9 cm [facility] Body weight 2022-01-12 04:38:00 131.543 kg [facility] BMI 2022-01-12 04:38:00 39.33 kg/m2 [facility] Systolic blood pressure 2020-02-05 19:45:00 132 mm[Hg] [facility] Diastolic blood pressure 2020-02-05 19:45:00 75 mm[Hg] [facility] Respiratory rate 2020-02-05 19:45:00 18 /min [facility] Body height 2020-02-05 19:45:00 182.9 cm [facility] Body weight 2020-02-05 19:45:00 157.852 kg [facility] BMI 2020-02-05 19:45:00 47.20 kg/m2 [facility] Systolic blood pressure 2020-01-14 18:36:00 134 mm[Hg] [facility] Diastolic blood pressure 2020-01-14 18:36:00 88 mm[Hg] [facility] Heart rate 2020-01-14 18:36:00 86 /[facility] Body temperature 2020-01-14 18:36:[address] [facility] Body height 2020-01-14 18:36:00 182.9 cm [facility] Body weight 2020-01-14 18:36:00 157.852 kg [facility] BMI 2020-01-14 18:36:00 47.20 kg/m2 [facility] Procedures Procedure Date / Time Performed Performing Clinicia n Source CONSENT/REFUSAL FOR DIAGNOSIS AND TREATMENT 2022-08-30 18:07:40 Doctor Unassigned, [facility] BASIC METABOLIC PANEL (NA, K, CL, CO2, GLUCOSE, BUN, CREATININE, CA) 2022-07-26 10:08:[address] [facility] CBC WITH DIFF 2022-07-26 10:08[facility] (NA, K, CL, CO2, GLUCOSE, BUN, CREATININE, CA) 2022-07-26 10:08:00 Rc [facility] CBC WITH DIFF 2022-07-26 10:08:00 [facility](AEROBIC/ANAER OBIC) 2022-07-25 17:44:00 Luis [facility] ASPIRATE OR ABSCESS CULTURE(AEROBIC/ANAER OBIC) 2022-07-25 17:44:00 Luis [facility] PILONIDAL CYST EXCISION 2022-07-25 17:06:00 Luis [facility] PILONIDAL CYST EXCISION 2022-07-25 17:06:00 Luis [facility] BASIC METABOLIC PANEL (NA, K, CL, CO2, GLUCOSE, BUN, CREATININE, CA) 2022-07-25 09:10:00 Sania [facility] CBC WITH DIFF 2022-07-25 09:10:00 [facility] BASIC METABOLIC PANEL (NA, K, CL, CO2, GLUCOSE, BUN, CREATININE, CA) 2022-07-25 09:10:00 Sania [facility] CBC WITH DIFF 2022-07-25 09:10:00 [facility] CT PELVIS W CONTRAST 2022-07-25 02:48:36 Santana Mathews [facility] CT PELVIS W CONTRAST 2022-07-25 02:48:36 Santana Mathews [facility] COMP. METABOLIC PANEL ([id number]) 2022-07-25 02:09:00 [facility] DIFF 2022-07-25 02:09:00 Osmar Mathews [facility] COMP. METABOLIC PANEL ([id number]) 2022-07-25 02:09:[address] [facility] CBC WITH DIFF 2022-07-25 02:09:00 [facility] FOR [facility]AGNOSIS AND TREATMENT 2022-07-25 01:04:36 Doctor Unassigned, [facility] CONSENT/REFUSAL FOR DIAGNOSIS AND TREATMENT 2022-07-25 01:04:36 Doctor Unassigned, [facility] ME DRAIN PILONIDAL CYST COMPLIC 2022-01-14 07:05:[address] [facility] COMP. METABOLIC PANEL (40311) 2022-01-14 04:54:[address] [facility] CT PELVIS W CONTRAST 2022-01-14 04:15:[address] [facility] CBC WITH DIFF 2022-01-14 03:54:[address] [facility] NOTICE OF PRIVACY PRACTICES 2022-01-14 02:01:00 Doctor Unassigned, [facility] CONSENT/REFUSAL FOR DIAGNOSIS AND TREATMENT 2022-01-14 02:00:05 Doctor Unassigned, [facility] NOTICE OF PRIVACY PRACTICES 2022-01-12 04:19:57 Doctor Unassigned, [facility] CONSENT/REFUSAL FOR DIAGNOSIS AND TREATMENT 2022-01-12 04:19:28 Doctor Unassigned, [facility] Encounters Start Date/Time End Date/Time Encounter Type Admission Type Attending [facility] Facility Care Department Encounter ID Source 2022-08-30 12:18:00 2022-08-30 14:15:00 Emergency X TED WOMACK [facility] ERT [id number] [facility] 2022-08-30 12:18:00 2022-08-30 14:15:[address] [facility] 1.2.840.114 350.1.13.10 4.2.7.2.686 [id number] [facility] 2022-07-24 19:13:00 2022-07-26 15:21:00 Outpatient X CHRISTOPHER ROBLEDO [facility] ZULY [id number] [facility] 2022-07-24 19:13:00 2022-07-26 15:21:00 Emergency Osmar Mathews [facility], Yaman [facility] 1.2.840.114 350.1.13.10 4.2.7.2.686 [id number] [facility] 2022-07-25 11:15:00 2022-07-25 13:05:00 Surgery Smith Marquita [facility] 1.2.840.114 350.1.13.10 4.2.7.2.686 [id number] [facility] 2022-01-13 21:26:00 2022-01-14 02:39:00 Emergency X ELOISAKARYMICHAEL REBECCA [facility] ERT [id number] [facility] 2022-01-13 21:26:00 2022-01-14 02:39:00 Emergency EloisasilvioRebecca rodriguez F [facility] 1.2.840.114 350.1.13.10 4.2.7.2.686 [id number] [facility] 2022-01-11 23:30:00 2022-01-12 00:29:00 Emergency X MAXIMO PIZARRO [facility] ERT [id number] [facility] 2022-01-11 23:30:00 2022-01-12 00:29:00 Emergency Everardo Pizarron R [facility] 1.2.840.114 350.1.13.10 4.2.7.2.686 [id number] [facility] 2020-02-13 09:15:00 2020-02-13 09:15:00 Outpatient DIXIE PEREZ [facility] [id number] [facility] 2020-02-12 15:30:00 2020-02-12 15:30:00 Outpatient DIXIE PEREZ [facility] [id number] [facility] 2020-02-12 09:12:46 2020-02-12 09:27:46 Telemedici ne Visit Dixie Jorge [facility] 1.2.840.114 350.1.13.10 4.2.7.2.686 [id number] [facility] 2020-02-05 14:37:28 2020-02-05 15:54:58 Office Visit Ariel Patel [facility] Barragan 1.2.840.114 350.1.13.10 4.2.7.2.686 [id number] [facility] 2020-02-05 15:15:00 2020-02-05 15:15:00 Outpatient R ARIEL PATEL [facility] [id number] [facility] 2020-01-22 09:30:00 2020-01-22 09:30:00 Outpatient SHERRY RIOS [facility] [id number] [facility] 2020-01-14 13:29:06 2020-01-14 13:59:06 Office Visit Dixie Jorge josias [facility] 1.2.840.114 350.1.13.10 4.2.7.2.686 [id number] [facility] 2020-01-14 13:30:00 2020-01-14 13:30:00 Outpatient Ashlee DIXIE JORGE [facility] [id number] [facility] Results Test Description Test Time Test Comments Results Result Co mments Source [facility] WITH [id number] 10:59:15* Test Item Value Reference Range Interpretation Comme nts WBC (test code = 6690-2) See_Comment H [Automated message] The system which generated this result transmitted reference range: 4.20 - 10.70 10*3/?L. The reference range was not used to interpret this result as normal/abnormal. RBC (test code = 789-8) See_Comment [Automated message] The system which generated this result transmitted reference range: 4.26 - 5.52 10*6/?L. The reference range was not used to interpret this result as normal/abnormal. HGB (test code = 718-7) 14.8 g/dL 12.2-16.4 HCT (test code = 4544-3) 43.1 % 38.4-49.3 MCV (test code = 787-2) 86.2 fL 81.7-95.6 MCH (test code = 785-6) 29.6 pg 26.1-32.7 MCHC (test code = 786-4) 34.3 g/dL 31.2-35.0 RDW-SD (test code = 60048-4) 38.9 fL 38.5-51.6 RDW-CV (test code = 788-0) 12.4 % 12.1-15.4 PLT (test code = 777-3) See_Comment [Automated message] The system which generated this result transmitted reference range: 150 - 328 10*3/?L. The reference range was not used to interpret this result as normal/abnormal. MPV (test code = 44605-7) 9.5 fL 9.8-13.0 L NRBC/100 WBC (test code = 8988891536) See_Comment [Automated message] The system which generated this result transmitted reference range: 0.0 - 10.0 /100 WBCs. The reference range was not used to interpret this result as normal/abnormal. NRBC x10^3 (test code = 9675273722) See_Comment [Automated message] The system which generated this result transmitted reference range: 10*3/?L. The reference range was not used to interpret this result as normal/abnormal. GRAN MAT (NEUT) % (test code = 770-8) 81.1 % IMM GRAN % (test code = 8740199271) 0.50 % LYMPH % (test code = 736-9) 13.2 % MONO % (test code = 5905-5) 4.9 % EOS % (test code = 713-8) 0.1 % BASO % (test code = 706-2) 0.2 % GRAN MAT x10^3(ANC) (test code = 1724261481) 13.52 10*3/uL 1.99-6.95 H IMM GRAN x10^3 (test code = 5089898562) 0.09 10*3/uL 0.00-0.06 H LYMPH x10^3 (test code = 731-0) 2.20 10*3/uL 1.09-3.23 MONO x10^3 (test code = 742-7) 0.81 10*3/uL 0.36-1.02 EOS x10^3 (test code = 711-2) 0.06-0.53 L BASO x10^3 (test code = 704-7) 0.03 10*3/uL 0.01-0.09 Lab Interpretation (test code = 91365-7) Abnormal [facility] METABOLIC PANEL (NA, K, CL, CO2, GLUCOSE, BUN, CREATININE, CA)2022-07-26 10:51:36* Test Item Value Reference Range Interpretation Comme nts NA (test code = 0530570670) 136 mmol/L 135-145 K (test code = 3480207959) 3.9 mmol/L 3.5-5.0 CL (test code = 2108914519) 104 mmol/L 98-108 CO2 TOTAL (test code = 3950559477) 22 mmol/L 23-31 L AGAP (test code = 4370141237) 2-16 BUN (test code = 1265032933) 9 mg/dL 7-23 GLUCOSE (test code = 3491798648) 107 mg/dL 70-110 CREATININE (test code = 5680334688) 0.62 mg/dL 0.60-1.25 CALCIUM (test code = 8996171829) 9.2 mg/dL 8.6-10.6 eGFR (test code = 5673397781) mL/min/1.73m2 KENYETTA (test code = KENYETTA) Association of [...] or abnormalities in imaging tests). Lab Interpretation (test code = 85379-5) Abnormal [facility] METABOLIC PANEL (NA, K, CL, CO2, GLUCOSE, BUN, CREATININE, CA)2022-07-26 10:51:36* Test Item Value Reference Range Interpretation Comme nts NA (test code = 3472724209) 136 mmol/L 135-145 K (test code = 4786789633) 3.9 mmol/L 3.5-5.0 CL (test code = 6095680903) 104 mmol/L 98-108 CO2 TOTAL (test code = 7043826205) 22 mmol/L 23-31 L AGAP (test code = 8982740200) 2-16 BUN (test code = 0619070376) 9 mg/dL 7-23 GLUCOSE (test code = 4094924492) 107 mg/dL 70-110 CREATININE (test code = 3971591544) 0.62 mg/dL 0.60-1.25 CALCIUM (test code = 6274264347) 9.2 mg/dL 8.6-10.6 eGFR (test code = 1359534367) mL/min/1.73m2 KENYETTA (test code = KENYETTA) Association of [...] or abnormalities in imaging tests). Lab Interpretation (test code = 01038-6) Abnormal [facility] with [id number] 10:39:06* Test Item Value Reference Range Interpretation Comme nts WBC (test code = 6690-2) See_Comment H [Tenfoot] The system which generated this result transmitted reference range: 4.20 - 10.70 10*3/?L. The reference range was not used to interpret this result as normal/abnormal. RBC (test code = 789-8) See_Comment [Tenfoot] The system which generated this result transmitted reference range: 4.26 - 5.52 10*6/?L. The reference range was not used to interpret this result as normal/abnormal. HGB (test code = 718-7) 13.8 g/dL 12.2-16.4 HCT (test code = 4544-3) 41.4 % 38.4-49.3 MCV (test code = 787-2) 87.7 fL 81.7-95.6 MCH (test code = 785-6) 29.2 pg 26.1-32.7 MCHC (test code = 786-4) 33.3 g/dL 31.2-35.0 RDW-SD (test code = 32066-7) 42.1 fL 38.5-51.6 RDW-CV (test code = 788-0) 13.2 % 12.1-15.4 PLT (test code = 777-3) See_Comment [Automated Yammera ge] The system which generated this result transmitted reference range: 150 - 328 10*3/?L. The reference range was not used to interpret this result as normal/abnormal. MPV (test code = 97417-7) 9.6 fL 9.8-13.0 L NRBC/100 WBC (test code = 7123000207) See_Comment [Automated Jawbone ssage] The system which generated this result transmitted reference range: 0.0 - 10.0 /100 WBCs. The reference range was not used to interpret this result as normal/abnormal. NRBC x10^3 (test code = 2457592728) See_Comment [Automated Yammera ge] The system which generated this result transmitted reference range: 10*3/?L. The reference range was not used to interpret this result as normal/abnormal. GRAN MAT (NEUT) % (test code = 770-8) 56.1 % IMM GRAN % (test code = 7433618345) 0.50 % LYMPH % (test code = 736-9) 31.8 % MONO % (test code = 5905-5) 7.8 % EOS % (test code = 713-8) 3.3 % BASO % (test code = 706-2) 0.5 % GRAN MAT x10^3(ANC) (test code = 2611653977) 7.15 10*3/uL 1.99-6.95 H IMM GRAN x10^3 (test code = 3008035229) 0.06 10*3/uL 0.00-0.06 LYMPH x10^3 (test code = 731-0) 4.04 10*3/uL 1.09-3.23 H MONO x10^3 (test code = 742-7) 0.99 10*3/uL 0.36-1.02 EOS x10^3 (test code = 711-2) 0.42 10*3/uL 0.06-0.53 BASO x10^3 (test code = 704-7) 0.06 10*3/uL 0.01-0.09 Lab Interpretation (test code = 02356-7) Abnormal [facility] with [id number] 10:39:06* Test Item Value Reference Range Interpretation Comme nts WBC (test code = 6690-2) See_Comment H [Automated messa ge] The system which generated this result transmitted reference range: 4.20 - 10.70 10*3/?L. The reference range was not used to interpret this result as normal/abnormal. RBC (test code = 789-8) See_Comment [Automated messa ge] The system which generated this result transmitted reference range: 4.26 - 5.52 10*6/?L. The reference range was not used to interpret this result as normal/abnormal. HGB (test code = 718-7) 13.8 g/dL 12.2-16.4 HCT (test code = 4544-3) 41.4 % 38.4-49.3 MCV (test code = 787-2) 87.7 fL 81.7-95.6 MCH (test code = 785-6) 29.2 pg 26.1-32.7 MCHC (test code = 786-4) 33.3 g/dL 31.2-35.0 RDW-SD (test code = 87630-5) 42.1 fL 38.5-51.6 RDW-CV (test code = 788-0) 13.2 % 12.1-15.4 PLT (test code = 777-3) See_Comment [Automated messa ge] The system which generated this result transmitted reference range: 150 - 328 10*3/?L. The reference range was not used to interpret this result as normal/abnormal. MPV (test code = 01740-8) 9.6 fL 9.8-13.0 L NRBC/100 WBC (test code = 6393249817) See_Comment [Automated Jawbone ssage] The system which generated this result transmitted reference range: 0.0 - 10.0 /100 WBCs. The reference range was not used to interpret this result as normal/abnormal. NRBC x10^3 (test code = 3474411642) See_Comment [Automated messa ge] The system which generated this result transmitted reference range: 10*3/?L. The reference range was not used to interpret this result as normal/abnormal. GRAN MAT (NEUT) % (test code = 770-8) 56.1 % IMM GRAN % (test code = 8728964083) 0.50 % LYMPH % (test code = 736-9) 31.8 % MONO % (test code = 5905-5) 7.8 % EOS % (test code = 713-8) 3.3 % BASO % (test code = 706-2) 0.5 % GRAN MAT x10^3(ANC) (test code = 9713671516) 7.15 10*3/uL 1.99-6.95 H IMM GRAN x10^3 (test code = 6615194187) 0.06 10*3/uL 0.00-0.06 LYMPH x10^3 (test code = 731-0) 4.04 10*3/uL 1.09-3.23 H MONO x10^3 (test code = 742-7) 0.99 10*3/uL 0.36-1.02 EOS x10^3 (test code = 711-2) 0.42 10*3/uL 0.06-0.53 BASO x10^3 (test code = 704-7) 0.06 10*3/uL 0.01-0.09 Lab Interpretation (test code = 78730-3) Abnormal [facility] Metabolic Panel (NA, K, CL, CO2, GLUCOSE, BUN, CREATININE, CA)2022-07-25 10:10:01* Test Item Value Reference Range Interpretation Comme nts NA (test code = 9380827292) 138 mmol/L 135-145 K (test code = 8008827851) 4.0 mmol/L 3.5-5.0 CL (test code = 7493430364) 104 mmol/L 98-108 CO2 TOTAL (test code = 3563432774) 26 mmol/L 23-31 AGAP (test code = 5180743118) 2-16 BUN (test code = 4472787102) 16 mg/dL 7-23 GLUCOSE (test code = 1242975487) 96 mg/dL 70-110 CREATININE (test code = 6374555393) 1.06 mg/dL 0.60-1.25 CALCIUM (test code = 4362423088) 9.0 mg/dL 8.6-10.6 eGFR (test code = 1967604263) mL/min/1.73m2 KENYETTA (test code = KENYETTA) Association of [...] urine or abnormalities in imaging tests). [facility] (NA, K, CL, CO2, GLUCOSE, BUN, CREATININE, CA)2022-07-25 10:10:01* Test Item Value Reference Range Interpretation Comme nts NA (test code = 0423515824) 138 mmol/L 135-145 K (test code = 8828038369) 4.0 mmol/L 3.5-5.0 CL (test code = 8981046430) 104 mmol/L 98-108 CO2 TOTAL (test code = 7772339005) 26 mmol/L 23-31 AGAP (test code = 7707018365) 2-16 BUN (test code = 5432423558) 16 mg/dL 7-23 GLUCOSE (test code = 6808033844) 96 mg/dL 70-110 CREATININE (test code = 2438820203) 1.06 mg/dL 0.60-1.25 CALCIUM (test code = 8723154194) 9.0 mg/dL 8.6-10.6 eGFR (test code = 9635266338) mL/min/1.73m2 KENYETTA (test code = KENYETTA) Association of [...] or urine or abnormalities in imaging tests). [facility]. METABOLIC PANEL (33211)2022-07-25 02:38:15* Test Item Value Reference Range Interpretation Comme nts NA (test code = 2890626071) 139 mmol/L 135-145 K (test code = 8351319856) 4.4 mmol/L 3.5-5.0 CL (test code = 4346515200) 104 mmol/L 98-108 CO2 TOTAL (test code = 1835075429) 25 mmol/L 23-31 AGAP (test code = 9376292002) 2-16 BUN (test code = 0548131318) 16 mg/dL 7-23 GLUCOSE (test code = 1946304377) 88 mg/dL 70-110 CREATININE (test code = 0442632226) 0.91 mg/dL 0.60-1.25 TOTAL BILI (test code = 0002351146) 0.4 mg/dL 0.1-1.1 CALCIUM (test code = 5538059166) 9.9 mg/dL 8.6-10.6 T PROTEIN (test code = 3215511565) 8.0 g/dL 6.3-8.2 ALBUMIN (test code = 5395079661) 4.9 g/dL 3.5-5.0 ALK PHOS (test code = 1403212875) 108 U/L 34-122 ALTv (test code = 1742-6) 31 U/L 5-50 AST(SGOT) (test code = 8710989343) 27 U/L 13-40 eGFR (test code = 3469577809) mL/min/1.73m2 KENYETTA (test code = KENYETTA) Association of [...] or urine or abnormalities in imaging tests). [facility]. METABOLIC PANEL (76742)2022-07-25 02:38:15* Test Item Value Reference Range Interpretation Comme nts NA (test code = 2558845746) 139 mmol/L 135-145 K (test code = 6376298809) 4.4 mmol/L 3.5-5.0 CL (test code = 9369108593) 104 mmol/L 98-108 CO2 TOTAL (test code = 2262491283) 25 mmol/L 23-31 AGAP (test code = 0419709599) 2-16 BUN (test code = 9025143965) 16 mg/dL 7-23 GLUCOSE (test code = 4926784877) 88 mg/dL 70-110 CREATININE (test code = 7910256548) 0.91 mg/dL 0.60-1.25 TOTAL BILI (test code = 6576450902) 0.4 mg/dL 0.1-1.1 CALCIUM (test code = 9074921903) 9.9 mg/dL 8.6-10.6 T PROTEIN (test code = 9021108318) 8.0 g/dL 6.3-8.2 ALBUMIN (test code = 7438977273) 4.9 g/dL 3.5-5.0 ALK PHOS (test code = 1538744441) 108 U/L 34-122 ALTv (test code = 1742-6) 31 U/L 5-50 AST(SGOT) (test code = 3942621910) 27 U/L 13-40 eGFR (test code = 2129575862) mL/min/1.73m2 KENYETTA (test code = KENYETTA) Association of [...] or urine or abnormalities in imaging tests). [facility] WITH [id number] 02:23:32* Test Item Value Reference Range Interpretation Comme nts WBC (test code = 6690-2) See_Comment H [Tenfoot] The system which generated this result transmitted reference range: 4.20 - 10.70 10*3/?L. The reference range was not used to interpret this result as normal/abnormal. RBC (test code = 789-8) See_Comment [Tenfoot] The system which generated this result transmitted reference range: 4.26 - 5.52 10*6/?L. The reference range was not used to interpret this result as normal/abnormal. HGB (test code = 718-7) 14.8 g/dL 12.2-16.4 HCT (test code = 4544-3) 44.0 % 38.4-49.3 MCV (test code = 787-2) 87.1 fL 81.7-95.6 MCH (test code = 785-6) 29.3 pg 26.1-32.7 MCHC (test code = 786-4) 33.6 g/dL 31.2-35.0 RDW-SD (test code = 58339-9) 41.7 fL 38.5-51.6 RDW-CV (test code = 788-0) 13.2 % 12.1-15.4 PLT (test code = 777-3) See_Comment [Automated messa ge] The system which generated this result transmitted reference range: 150 - 328 10*3/?L. The reference range was not used to interpret this result as normal/abnormal. MPV (test code = 26142-3) 9.5 fL 9.8-13.0 L NRBC/100 WBC (test code = 1507154331) See_Comment [Automated Jawbone ssage] The system which generated this result transmitted reference range: 0.0 - 10.0 /100 WBCs. The reference range was not used to interpret this result as normal/abnormal. NRBC x10^3 (test code = 3419415364) See_Comment [Automated messa ge] The system which generated this result transmitted reference range: 10*3/?L. The reference range was not used to interpret this result as normal/abnormal. GRAN MAT (NEUT) % (test code = 770-8) 59.7 % IMM GRAN % (test code = 5846822020) 0.50 % LYMPH % (test code = 736-9) 28.3 % MONO % (test code = 5905-5) 8.0 % EOS % (test code = 713-8) 3.0 % BASO % (test code = 706-2) 0.5 % GRAN MAT x10^3(ANC) (test code = 6870051172) 8.17 10*3/uL 1.99-6.95 H IMM GRAN x10^3 (test code = 0641835327) 0.07 10*3/uL 0.00-0.06 H LYMPH x10^3 (test code = 731-0) 3.88 10*3/uL 1.09-3.23 H MONO x10^3 (test code = 742-7) 1.09 10*3/uL 0.36-1.02 H EOS x10^3 (test code = 711-2) 0.41 10*3/uL 0.06-0.53 BASO x10^3 (test code = 704-7) 0.07 10*3/uL 0.01-0.09 Lab Interpretation (test code = 56577-9) Abnormal [facility] WITH [id number] 02:23:32* Test Item Value Reference Range Interpretation Comme nts WBC (test code = 6690-2) See_Comment H [Automated messa ge] The system which generated this result transmitted reference range: 4.20 - 10.70 10*3/?L. The reference range was not used to interpret this result as normal/abnormal. RBC (test code = 789-8) See_Comment [Automated messa ge] The system which generated this result transmitted reference range: 4.26 - 5.52 10*6/?L. The reference range was not used to interpret this result as normal/abnormal. HGB (test code = 718-7) 14.8 g/dL 12.2-16.4 HCT (test code = 4544-3) 44.0 % 38.4-49.3 MCV (test code = 787-2) 87.1 fL 81.7-95.6 MCH (test code = 785-6) 29.3 pg 26.1-32.7 MCHC (test code = 786-4) 33.6 g/dL 31.2-35.0 RDW-SD (test code = 33577-8) 41.7 fL 38.5-51.6 RDW-CV (test code = 788-0) 13.2 % 12.1-15.4 PLT (test code = 777-3) See_Comment [Automated messa ge] The system which generated this result transmitted reference range: 150 - 328 10*3/?L. The reference range was not used to interpret this result as normal/abnormal. MPV (test code = 68577-5) 9.5 fL 9.8-13.0 L NRBC/100 WBC (test code = 0969042304) See_Comment [Automated me ssage] The system which generated this result transmitted reference range: 0.0 - 10.0 /100 WBCs. The reference range was not used to interpret this result as normal/abnormal. NRBC x10^3 (test code = [id number]) See_Comment [Automated messa ge] The system which generated this result transmitted reference range: 10*3/?L. The reference range was not used to interpret this result as normal/abnormal. GRAN MAT (NEUT) % (test code = 770-8) 59.7 % IMM GRAN % (test code = [id number]) 0.50 % LYMPH % (test code = 736-9) 28.3 % MONO % (test code = 5905-5) 8.0 % EOS % (test code = 713-8) 3.0 % BASO % (test code = 706-2) 0.5 % GRAN MAT x10^3(ANC) (test code = 0036159793) 8.17 10*3/uL 1.99-6.95 H IMM GRAN x10^3 (test code = 9119371257) 0.07 10*3/uL 0.00-0.06 H LYMPH x10^3 (test code = 731-0) 3.88 10*3/uL 1.09-3.23 H MONO x10^3 (test code = 742-7) 1.09 10*3/uL 0.36-1.02 H EOS x10^3 (test code = 711-2) 0.41 10*3/uL 0.06-0.53 BASO x10^3 (test code = 704-7) 0.07 10*3/uL 0.01-0.09 Lab Interpretation (test code = 19189-9) Abnormal [facility]. METABOLIC PANEL ([id number])2022-01-14 05:16:50* Test Item Value Reference Range Interpretation Comme nts NA (test code = 2433173487) 139 mmol/L 135-145 K (test code = 7730760148) 5.0 mmol/L 3.5-5.0 CL (test code = 1632044703) 102 mmol/L 98-108 CO2 TOTAL (test code = 9263495345) 28 mmol/L 23-31 AGAP (test code = 3033030288) 2-16 BUN (test code = 6390213193) 12 mg/dL 7-23 GLUCOSE (test code = 4103109096) 97 mg/dL 70-110 CREATININE (test code = 2572829016) 1.20 mg/dL 0.60-1.25 TOTAL BILI (test code = 0207899289) 0.3 mg/dL 0.1-1.1 CALCIUM (test code = 9636517723) 9.0 mg/dL 8.6-10.6 T PROTEIN (test code = 8585119896) 7.2 g/dL 6.3-8.2 ALBUMIN (test code = 7671413666) 4.4 g/dL 3.5-5.0 ALK PHOS (test code = 9334715806) 97 U/L 34-122 ALTv (test code = 1742-6) 19 U/L 5-50 AST(SGOT) (test code = 3547603589) 20 U/L 13-40 eGFR (test code = 2737101977) mL/min/1.73m2 KENYETTA (test code = KENYETTA) Association of [...] or urine or abnormalities in imaging tests). [facility] WITH [id number] 04:02:23* Test Item Value Reference Range Interpretation Comme nts WBC (test code = 6690-2) See_Comment H [Automated messa ge] The system which generated this result transmitted reference range: 4.20 - 10.70 10*3/?L. The reference range was not used to interpret this result as normal/abnormal. RBC (test code = 789-8) See_Comment [Automated messa ge] The system which generated this result transmitted reference range: 4.26 - 5.52 10*6/?L. The reference range was not used to interpret this result as normal/abnormal. HGB (test code = 718-7) 15.4 g/dL 12.2-16.4 HCT (test code = 4544-3) 45.0 % 38.4-49.3 MCV (test code = 787-2) 86.5 fL 81.7-95.6 MCH (test code = 785-6) 29.6 pg 26.1-32.7 MCHC (test code = 786-4) 34.2 g/dL 31.2-35.0 RDW-SD (test code = 19534-9) 40.9 fL 38.5-51.6 RDW-CV (test code = 788-0) 13.0 % 12.1-15.4 PLT (test code = 777-3) See_Comment [Automated messa ge] The system which generated this result transmitted reference range: 150 - 328 10*3/?L. The reference range was not used to interpret this result as normal/abnormal. MPV (test code = 64237-9) 9.2 fL 9.8-13.0 L NRBC/100 WBC (test code = 1837828863) See_Comment [Automated Jawbone ssage] The system which generated this result transmitted reference range: 0.0 - 10.0 /100 WBCs. The reference range was not used to interpret this result as normal/abnormal. NRBC x10^3 (test code = 8826283580) <0.01 See_Comment [Automated messa ge] The system which generated this result transmitted reference range: 10*3/?L. The reference range was not used to interpret this result as normal/abnormal. GRAN MAT (NEUT) % (test code = 770-8) 68.6 % IMM GRAN % (test code = 9598470447) 0.50 % LYMPH % (test code = 736-9) 20.3 % MONO % (test code = 5905-5) 8.1 % EOS % (test code = 713-8) 2.0 % BASO % (test code = 706-2) 0.5 % GRAN MAT x10^3(ANC) (test code = 1127095796) 9.98 10*3/uL 1.99-6.95 H IMM GRAN x10^3 (test code = 3913546160) 0.07 10*3/uL 0.00-0.06 H LYMPH x10^3 (test code = 731-0) 2.95 10*3/uL 1.09-3.23 MONO x10^3 (test code = 742-7) 1.18 10*3/uL 0.36-1.02 H EOS x10^3 (test code = 711-2) 0.29 10*3/uL 0.06-0.53 BASO x10^3 (test code = 704-7) 0.07 10*3/uL 0.01-0.09 Lab Interpretation (test code = 36406-5) Abnormal [facility]"
[2023-07-12] MEDS ORDERED: NA CHLORIDE 0.9% 1,000 ML ONE (00:40)
[2023-07-12] MEDS ORDERED: ONDANSETRON 4 MG/2 ML VIAL ONE (00:40)
[2023-07-12] MEDS ORDERED: KETOROLAC 30 MG/ML INJ ONE (00:40)
[2023-07-12] MEDS ORDERED: ACETAMINOPHEN 500 MG TAB ONE (00:40)
[2023-07-12] MEDS ORDERED: DIPHENHYDRAMINE 50 MG/ML VIAL ONE (00:40)
[2023-07-12] MEDS ORDERED: CYCLOBENZAPRINE 10 MG TAB ONE (00:40)
[2023-07-12 01:16] LABS: Absolute Lymphocytes (CBC) 2.3 K/uL (0.7-4.9); Hematocrit 41.8 % (39.6-49.0); Lymphocytes % 15.2 % (15.3-44.8); MCV 83.9 fL (80-100); MPV 7.7 fL (7.6-11.3); Platelets 173 thou/uL (152-406); RBC Red Blood Cell Count 4.98 M/uL (4.33-5.43)
[2023-07-12 01:29] LABS: Albumin 3.2 g/dL (3.4-5.0); Bilirubin Direct 0.1 mg/dL (0-0.2); Bilirubin Indirect, Calculated 0.2 mg/dL (0.2-0.8); Bilirubin Total 0.3 mg/dL (0.2-1.0); Magnesium 2.3 mg/dL (1.6-2.4); Potassium 3.4 mEq/L (3.5-5.1); Protein, Total 7.8 g/dL (6.4-8.2); Troponin High Sensitivity 9.8 pg/mL (<58.9)
--- NOTE | 2023-07-12 01:41 | ER ---
Nurse's Notes [facility] Name: Rui Gautam Age: 27 yrs Sex: Male : 1995 Arrival Date: 07/11/2023 Time: 23:20 Bed 4 Private MD: Diagnosis: Other specified viral diseases;Acute bronchitis, acute tonsillitis, acute pharyngitis, influenza B, Presentation: 07/11 23:38 Chief complaint: Patient states: FEVER SINCE Jul REPORTS INCREASE IN WEAKNESS kl REPORTS MIGRAINE AND COUGHING. Coronavirus screen: Vaccine status: Patient reports being unvaccinated. Ebola Screen: Patient negative for fever greater than or equal to 101.5 degrees Fahrenheit, and additional compatible Ebola Virus Disease symptoms. Initial Sepsis Screen: Does the patient meet any 2 criteria? HR > 90 bpm. Does the patient have a suspected source of infection? No. Patient's initial sepsis screen is negative. Initial Sepsis Screen: Does the patient meet any 2 criteria?. Risk Assessment: Do you want to hurt yourself or someone else? Patient reports no desire to harm self or others. Note PT SEEN AT [facility] ON 07/09 DIAGNOSED WITH FLU NEGATIVE COVID. 23:38 Method Of Arrival: Ambulatory 23:38 Acuity: LARRY 3 kl Triage Assessment: 23:42 General: Appears comfortable, obese, Behavior is calm, cooperative. Pain: Complains of kl pain in HEAD. EENT: Reports nasal congestion nasal discharge. Neuro: No deficits noted. Historical: - Allergies: 23:41 No Known Allergies; kl - Home Meds: 23:41 dextromethorphan HBr 15 mg/5 mL oral liquid [Active]; ketorolac 10 mg Oral tablet kl [Active]; - Immunization history:: Adult Immunizations not immunized. - Social history:: Smoking status: Patient reports the use of cigarette tobacco products, smokes one-half pack cigarettes per day. - Family history:: not pertinent. Screenin/07 02:28 [facility] ED Fall Risk Assessment (Adult) History of falling in the last 3 months, vc1 including since admission No falls in past 3 months (0 pts) Confusion or Disorientation No (0 pts) Intoxicated or Sedated No (0 pts) Impaired Gait No (0 pts) Mobility Assist Device Used No (0 pt) Altered Elimination No (0 pt) Score/Fall Risk Level 0 - 2 = Low Risk Oriented to surroundings, Maintained a safe environment, Educated pt \T\ family on fall prevention, incl call for assistance when getting out of bed. Abuse screen: Denies threats or abuse. Nutritional screening: No deficits noted. Tuberculosis screening: No symptoms or risk factors identified. Assessment: :19 Reassessment: No changes from previously documented assessment. Patient and/or family vc1 updated on plan of care and expected duration. Pain level reassessed. Patient is alert, oriented x 3, equal unlabored respirations, skin warm/dry/pink. Vital Signs: 07/11 23:38 BP 135 / 78; Pulse 104; Resp 20; Temp 100; Pulse Ox 98% ; Weight 136.08 kg; Height 6 kl ft. 0 in. ; Pain 05/15; 07/12 01:18 BP 153 / 83; Pulse 86; Resp 23; Pulse Ox 97% ; vc1 02:27 BP 112 / 58; Pulse 81; Resp 23; Pulse Ox 97% ; vc1 07/11 23:38 Body Mass Index 40.69 (136.08 kg, 182.88 cm) 07/11 23:38 Pain Scale: Adult ED Course: 07/11 23:21 Patient arrived in ED. jj6 23:38 Arm band placed on right wrist. vc1 23:38 Patient has correct armband on for positive identification. Bed in low position. Call vc1 light in reach. Client placed on continuous cardiac and pulse oximetry monitoring. NIBP monitoring applied. 23:41 Triage completed. kl 23:50 Isac Martinez MD is Attending Physician. sp4 07/12 00:47 Inserted saline lock: 22 gauge in right hand, using aseptic technique. Blood collected. vc1 00:57 Basic Metabolic Panel Sent. wm 00:57 CBC with Diff Sent. wm 00:57 LFT's Sent. wm 00:57 Magnesium Sent. wm 00:57 NT PRO-BNP Sent. wm 00:57 Troponin HS Sent. wm 00:57 COVID-19/FLU A+B Sent. wm 00:57 EKG done, by ED staff, reviewed by Isac Martinez MD. wm 01:18 Clarisa Mosley, RN is Primary Nurse. vc1 02:28 No provider procedures requiring assistance completed. IV discontinued, intact, vc1 bleeding controlled, No redness/swelling at site. Pressure dressing applied. Administered Medications: 01:00 Drug: NS 0.9% IV 1000 ml IV at 1 bolus Per protocol; 1000 mL bolus Route: IV; Rate: 1 vc1 bolus; Site: right hand; 01:00 Drug: Ondansetron IVP 4 mg IVP once; over 2 minutes Route: IVP; Site: right hand; vc1 01:00 Drug: Ketorolac IVP 30 mg IVP once Route: IVP; Site: right hand; vc1 01:00 Drug: Acetaminophen PO 1000 mg PO once Route: PO; vc1 01:01 Drug: Cyclobenzaprine PO 10 mg PO once Route: PO; vc1 01:01 Drug: diphenhydrAMINE IVP 25 mg IVP once Route: IVP; Site: right hand; vc1 02:16 Not Given (Other Intervention Used): norco10 mg-325 mg 1 tabs PO once kl 02:26 Drug: AZITHromycin PO 500 mg PO once Route: PO; vc1 02:26 Drug: HYDROcodone-acetaminophen PO 5 mg-325 mg 2 tabs PO once Route: PO; vc1 02:27 Not Given (Patient Refused): ns 0.9% 1000 ml IV at 1 bolus Per protocol; 1000 mL bolus vc1 Medication: 02:29 VIS not applicable for this client. vc1 Outcome: 01:40 Discharge ordered by . sp4 02:29 Discharged to home ambulatory, vc1 02:29 Condition: improved 02:29 Discharge instructions given to patient, Instructed on discharge instructions, follow up and referral plans. medication usage, Demonstrated understanding of instructions, follow-up care, medications, Prescriptions given X 5 02:31 Patient left the ED. vc1 Signatures: [place] Baird RN Meli Puga Jennifer jj6 Clarisa Mosley RN RN vc1 Potepalov, Sergey, MD MD sp4
--- NOTE | 2023-07-12 01:41 | EDPHYS ---
Physician Documentation [facility] Name: Rui Gautam Age: 27 yrs Sex: Male : 1995 Arrival Date: 07/11/2023 Time: 23:20 Bed 4 Private MD: ED Physician Isac Martinez HPI: 07/11 23:50 This 27 yrs old Black Male presents to ER via Ambulatory with complaints of Fever. sp4 23:57 27-year-old male presents with 6 days of fever, chills also reported single sort of sp4 syncope at home. Patient was diagnosed with influenza B on 07/09/2023 at the [facility] . Historical: - Allergies: 23:41 No Known Allergies; kl - Home Meds: 23:41 dextromethorphan HBr 15 mg/5 mL oral liquid [Active]; ketorolac 10 mg Oral tablet kl [Active]; - Immunization history:: Adult Immunizations not immunized. - Social history:: Smoking status: Patient reports the use of cigarette tobacco products, smokes one-half pack cigarettes per day. - Family history:: not pertinent. ROS: 07/12 01:31 Constitutional: Positive for fever, chills, feeling unwell sp4 All other systems are negative, Exam: 01:26 ECG was reviewed by the Attending Physician. There is EKG at 0051. Normal sinus sp4 rhythm at the rate of 90, normal EKG 01:31 Constitutional: This is a well developed, well nourished patient who is awake, alert, sp4 and in no acute distress. Head/Face: Normocephalic, atraumatic. Eyes: Pupils equal round and reactive to light, extra-ocular motions intact. Lids and lashes normal. Conjunctiva and sclera are not injected. Cornea within normal limits. Periorbital areas with no swelling, redness, or edema. ENT: Nares patent. No nasal discharge, no septal abnormalities noted. Tympanic membranes are normal and external auditory canals are clear. Oropharynx with no redness, swelling, or masses, exudates, or evidence of obstruction, uvula midline. Mucous membranes moist. Neck: Trachea midline, no thyromegaly or masses palpated, and no cervical lymphadenopathy. Supple, full range of motion without nuchal rigidity, or vertebral point tenderness. Chest/axilla: Normal chest wall appearance and motion. Nontender with no deformity. No lesions are appreciated. Cardiovascular: Regular rate and rhythm with a normal S1 and S2. No gallops, murmurs, or rubs. Normal PMI, no JVD. No pulse deficits. Respiratory: Lungs have equal breath sounds bilaterally, clear to auscultation and percussion. No rales, rhonchi or wheezes noted. No increased work of breathing, no retractions or nasal flaring. Abdomen/GI: Soft, non-tender, with normal bowel sounds. No distension or tympany. No guarding or rebound. No evidence of tenderness throughout. Back: No spinal tenderness. No costovertebral tenderness. Skin: Warm, dry with normal turgor. Normal color with no rashes, no lesions, and no evidence of cellulitis. MS/ Extremity: Pulses equal, no cyanosis. Neurovascular intact. Full, normal range of motion. Neuro: Awake and alert, GCS 15, oriented to person, place, time, and situation. Cranial nerves II-XII grossly intact. Motor strength 5/5 in all extremities. Sensory grossly intact. Psych: Awake, alert, with orientation to person, place and time. Behavior, mood, and affect are within normal limits Vital Signs: 07/11 23:38 BP 135 / 78; Pulse 104; Resp 20; Temp 100; Pulse Ox 98% ; Weight 136.08 kg; Height 6 kl ft. 0 in. ; Pain 10/10; 07/12 01:18 BP 153 / 83; Pulse 86; Resp 23; Pulse Ox 97% ; vc1 02:27 BP 112 / 58; Pulse 81; Resp 23; Pulse Ox 97% ; vc1 07/11 23:38 Body Mass Index 40.69 (136.08 kg, 182.88 cm) kl 07/11 23:38 Pain Scale: Adult kl MDM: 07/11 23:55 Patient medically screened. sp4 07/12 01:39 Differential diagnosis: viral Infection, bacterial infection, URI, bronchitis, sp4 pneumonia UTI, gastroenteritis. Data reviewed: vital signs, nurses notes, old medical records, lab test result(s), EKG. Consideration of Admission/Observation Escalation of care including admission/observation considered. ED course: Was given IV hydration and symptomatic medications. Patient somewhat improved. Family has signs of acute tonsillitis. Will prescribe Zithromax for 5 days. Dextromethorphan for cough, Tylenol or ibuprofen for fever, ondansetron for nausea. . 07/11 23:56 Order name: Basic Metabolic Panel; Complete Time: 01:33 sp4 07/11 23:56 Order name: CBC with Diff; Complete Time: 01:26 sp4 07/11 23:56 Order name: LFT's; Complete Time: 01:33 sp4 07/11 23:56 Order name: Magnesium; Complete Time: :33 sp4 07/11 23:56 Order name: NT PRO-BNP; Complete Time: 01:33 sp4 07/11 23:56 Order name: Troponin HS; Complete Time: :33 sp4 07/11 23:56 Order name: EKG; Complete Time: 00:42 sp4 07/11 23:56 Order name: Cardiac monitoring; Complete Time: 00:57 sp4 07/11 23:56 Order name: EKG - Nurse/Tech; Complete Time: 00:57 sp4 07/11 23:56 Order name: IV Saline Lock; Complete Time: 00:57 sp4 07/11 23:56 Order name: Labs collected and sent; Complete Time: 00:57 sp4 07/11 23:56 Order name: O2 Per Protocol; Complete Time: 00:57 sp4 07/11 23:56 Order name: O2 Sat Monitoring; Complete Time: 00:57 sp4 EC:26 Rate is 90 beats/min. Rhythm is regular, Normal Sinus Rhythm. QRS [place] is Normal. [place] sp4 interval is normal. QRS interval is normal. QT interval is normal. No Q waves. T waves are Normal. No ST changes noted. Clinical impression: Normal ECG. Interpreted by me. Reviewed by me. Administered Medications: 01:00 Drug: NS 0.9% IV 1000 ml IV at 1 bolus Per protocol; 1000 mL bolus Route: IV; Rate: 1 vc1 bolus; Site: right hand; 01:00 Drug: Ondansetron IVP 4 mg IVP once; over 2 minutes Route: IVP; Site: right hand; vc1 01:00 Drug: Ketorolac IVP 30 mg IVP once Route: IVP; Site: right hand; vc1 01:00 Drug: Acetaminophen PO 1000 mg PO once Route: PO; vc1 01:01 Drug: Cyclobenzaprine PO 10 mg PO once Route: PO; vc1 01:01 Drug: diphenhydrAMINE IVP 25 mg IVP once Route: IVP; Site: right hand; vc1 02:16 Not Given (Other Intervention Used): norco10 mg-325 mg 1 tabs PO once kl 02:26 Drug: AZITHromycin PO 500 mg PO once Route: PO; vc1 02:26 Drug: HYDROcodone-acetaminophen PO 5 mg-325 mg 2 tabs PO once Route: PO; vc1 02:27 Not Given (Patient Refused): ns 0.9% 1000 ml IV at 1 bolus Per protocol; 1000 mL bolus vc1 Disposition Summary: 07/12/23 01:40 Discharge Ordered Problem: new sp4 Symptoms: have improved sp4 Condition: Stable sp4 Diagnosis - Other specified viral diseases sp4 - Acute bronchitis, acute tonsillitis, acute pharyngitis, influenza B, sp4 Followup: sp4 - With: Private Physician - When: 7 - 10 days - Reason: Recheck today's complaints Discharge Instructions: - Discharge Summary Sheet sp4 - Viral Illness, Adult sp4 Forms: - Work release form vc1 - Patient Portal Instructions sp4 Prescriptions: - acetaminophen 500 mg Oral capsule - take 2 capsule ORAL route every 6 hours PRN fever - Take Together with sp4 Ibuprofen; 30 capsule; Refills: 0, Product Selection Permitted - dextromethorphan-guaifenesin 30-600 mg Oral Tablet, Extended Release 12 hr - take 2 tablet ORAL route every 8 hours PRN cough; 60 tablet; Refills: 0, sp4 Product Selection Permitted - Ibuprofen 800 mg Oral tablet - take 1 tablet ORAL route every 6 hours As needed PRN fever; 30 tablet; Refills: sp4 0, Product Selection Permitted - Zithromax Z-Amandeep 250 mg Oral Tablet - take 1 tablet ORAL route as directed for 5 days Day 1 - take two (2) tablets sp4 one time. Day 2, 3, 4 , 5 take one (1) tablet once daily.; 6 tablet; Refills: 0, Product Selection Permitted - ondansetron 8 mg Oral Tablet,disintegrating - take 1 tablet ORAL route every 8 hours PRN nausea; 30 tablet; Refills: 0, sp4 Product Selection Permitted Signatures: Dispatcher [employer] [place] Clinton RN RN kl Calcote, Vanessa, RN RN vc1 Isac Martinez MD MD sp4
[2023-07-12] MEDS ORDERED: HYDROCODONE/APAP 5/325 MG TAB ONE (02:29)
[2023-07-12] MEDS ORDERED: AZITHROMYCIN 250 MG TAB ONE ×2 (02:29→02:33)
[2023-07-12 02:46] VITALS: TEMP 100
[2023-07-12 02:52] VITALS: O2SAT 97
[2023-07-12 02:57] VITALS: BP 112/58
--- NOTE | 2023-07-17 14:05 | EKG ---
Test Date: 2023-07-12 Test Time: 00:51:54 Junior Linux Administrator: MEASUREMENT RESULTS: Intervals: Rate: 90 NM: 156 QRSD: 96 QT: 350 QTc: 428 [place]: P: 54 NM: 156 QRS: 56 T: 20 INTERPRETIVE STATEMENTS: Normal sinus rhythm Normal ECG Compared to ECG 08/22/2019 03:21:17 No significant changes Electronically Signed On 07-17-23 13:46:38 RECEPTION SPECIALIST by Bhavik Elise
== END 2023-07-12 02:31 | disposition home or self-care (01) ==
LOC: ER 23:20
DX: J10.1 Influenza due to other identified influenza virus with other respiratory manifestations (principal); J20.8 Acute bronchitis due to other specified organisms
CPT/HCPCS: 36415; 80048; 80076; 83735; 83880; 84484; 85025; 93005; 96374; 96375; 99285; J1200; J2405; J7030